=== PATIENT | female | born 1935 | race Hispanic/Latino ===

== ENCOUNTER 2020-05-25 15:29 | Inpatient (IN) | payer MEDICARE ==
[~2020-05-25] VITALS: Ht 152.4 cm; Wt 79.4 kg
[2020-05-25 16:43] LABS: BASOPHILS % (AUTO) 0.3 % (0.0-5.0); EOSINOPHILS % (AUTO) 1.5 % (0.0-8.0); HEMATOCRIT 41.9 % (36-48); LYMPHOCYTES % (AUTO) 5.4 % (21.0-51.0); MEAN CORPUSCULAR VOLUME 84.3 fL (79-99); NEUTROPHILS % (AUTO) 87.2 % (40.0-77.0); PLATELET COUNT (AUTO) 177 K/uL (130-400); RED BLOOD CELL COUNT(AUTO) 4.97 MIL/uL (4.00-5.50); RED CELL DISTRIBUTION WIDTH 14.2 % (11.0-15.5); WHITE BLOOD COUNT (AUTO) 12.4 K/uL (4.8-10.8)
[2020-05-25] MEDS ORDERED: 0.9%NACL 1000ML 1,000 ML IV ONE ×2 (16:52→19:58)
[2020-05-25] MEDS ORDERED: ONDANSETRON 4MG INJ ONE ×2 (16:52→23:10)
[2020-05-25] MEDS ORDERED: MORPHINE 2 MG SYG ONE (16:52)
[2020-05-25 17:03] LABS: INR 1.27 (0.85-1.15); PROTHROMBIN TIME 13.5 SEC (9.6-11.6)
[2020-05-25 17:05] LABS: PARTIAL THROMBOPLASTIN TIME 29.4 SEC (26.3-35.5)
[2020-05-25 17:09] LABS: ALBUMIN 2.8 g/dL (3.5-5.0); BILIRUBIN,TOTAL 0.4 mg/dL (0.2-1.0); CREATININE 1.3 mg/dL (0.5-1.5); POTASSIUM 4.7 mmol/L (3.5-5.1); TOTAL PROTEIN, SERUM 7.9 g/dL (6.0-8.3)
[2020-05-25] MEDS ORDERED: ZOSYN 3.375GM+NS 50ML 50 ML IV ONE (19:56)
[2020-05-25] MEDS ORDERED: INSULIN HUMULIN R 100 UNIT/ML 3ML ONE (19:57)
[2020-05-25] MEDS ORDERED: 0.9%NACL 1000ML 2,000 ML IV ONE (20:34)
[2020-05-25] MEDS ORDERED: ACETAMINOPHEN 650 MG SUPPOSITORY RC PRN (21:00)
[2020-05-25 21:22] LABS: APPEARANCE,URINE Clear (CLEAR); BILIRUBIN,URINE Negative (NEGATIVE); COLOR,URINE Yellow (YELLOW); GLUCOSE, URINE (UA) >=1000 mg/dL (NEGATIVE); KETONES,URINE 15 mg/dL (NEGATIVE); LEUKOCYTE ESTERASE ,URINE Negative (NEGATIVE); NITRATE,URINE Negative (NEGATIVE); OCCULT BLOOD,URINE Negative (NEGATIVE); PH,URINE 5.5 (5.0-8.0); PROTEIN,URINE POS 1+ mg/dL (NEGATIVE); UROBILINOGEN,URINE 0.2 mg/dL (0.2-1.0)
[2020-05-25 21:32] LABS: BACTERIA,URINE Few /HPF (None Seen); RBC,URINE 0-1 /HPF (0-1); SQUAMOUS EPITHELIAL CELL,UR Few /HPF (0-2)
[2020-05-25] MEDS ORDERED: ETOMIDATE 20MG VIAL ONE (23:08)
[2020-05-25] MEDS ORDERED: SUCCINYLCHOLINE CHLORIDE 20 MG/ML 10 ML VIAL ONE (23:10)
[2020-05-25] MEDS ORDERED: ROCURONIUM 10MG/1ML SYR 10 MG/ML ML ONE (23:10)
[2020-05-25] MEDS ORDERED: FENTANYL CITRATE PF 50 MCG/1 ML 2ML VIAL ONE (23:11)
[2020-05-25] MEDS ORDERED: ALBUMIN (HUMAN) 5% 250 ML IV ONE (23:56)
[2020-05-26] VITALS (29 sets, daily range): BP systolic 110–177; BP diastolic 44–84
[2020-05-26 00:21] LABS: ABG BASE EXCESS -9.1 mmol/L (-2.0-3.0); ABG HCO3 16.6 mmol/L (21.0-28.0); ABG OXYGEN SATURATION 99.4 % (95.0-99.0); ABG PCO2 35 mmHg (32-45)
[2020-05-26] MEDS ORDERED: PROPOFOL 1000 MG/100 ML 100 ML IV ONE ×2 (00:26→03:21)
[2020-05-26] MEDS: ZOSYN 3.375GM+NS 50ML 50 ML IV SCH ×3 (01:37→20:52)
[2020-05-26] MEDS: METOPROLOL TARTRATE 1 MG/ML 5ML VIAL IV SCH ×5 (01:37→20:54)
[2020-05-26] MEDS ORDERED: PROPOFOL 1000 MG/100 ML 100 ML IV SCH (01:45)
[2020-05-26 04:58] LABS: BASOPHILS % (AUTO) 0.4 % (0.0-5.0); EOSINOPHILS % (AUTO) 1.1 % (0.0-8.0); HEMATOCRIT 34.1 % (36-48); LYMPHOCYTES % (AUTO) 5.2 % (21.0-51.0); MEAN CORPUSCULAR HEMOGLOBIN 27.3 pg (27.0-33.0); MEAN CORPUSCULAR HGB CONC 32.3 g/dL (32.0-36.0); MEAN CORPUSCULAR VOLUME 84.6 fL (79-99); MONOCYTES % (AUTO) 4.6 % (3.0-13.0); NEUTROPHILS % (AUTO) 88.4 % (40.0-77.0); PLATELET COUNT (AUTO) 147 K/uL (130-400); RED BLOOD CELL COUNT(AUTO) 4.03 MIL/uL (4.00-5.50); RED CELL DISTRIBUTION WIDTH 14.2 % (11.0-15.5); WHITE BLOOD COUNT (AUTO) 10.7 K/uL (4.8-10.8)
[2020-05-26 05:15] LABS: INR 1.37 (0.85-1.15); POTASSIUM 4.2 mmol/L (3.5-5.1); PROTHROMBIN TIME 14.5 SEC (9.6-11.6)
[2020-05-26 05:16] LABS: PARTIAL THROMBOPLASTIN TIME 34.7 SEC (26.3-35.5)
[2020-05-26] MEDS ORDERED: LACTATED RINGERS 1000ML 1,000 ML IV ONE (06:49)
[2020-05-26] MEDS: LACTATED RINGERS 1000ML 1,000 ML IV SCH ×2 (08:18→20:42)
[2020-05-26] MEDS: FAMOTIDINE 20MG VIAL IV SCH ×2 (08:21→20:52)
[2020-05-26] MEDS: MORPHINE 4 MG SYG IVP PRN (10:20)
[2020-05-26] MEDS: INSULIN HUMULIN R 100 UNIT/ML 3ML SQ SCH ×3 (12:15→23:55)
[2020-05-26 12:33] LABS: ABG BASE EXCESS -1.2 mmol/L (-2.0-3.0); ABG OXYGEN SATURATION 99.3 % (95.0-99.0); ABG PCO2 33 mmHg (32-45)
[2020-05-26 13:56] LABS: ABG BASE EXCESS -2.5 mmol/L (-2.0-3.0); ABG OXYGEN SATURATION 99.5 % (95.0-99.0); ABG PCO2 33 mmHg (32-45)
[2020-05-26] MEDS: MORPHINE 2 MG SYG IVP PRN ×2 (14:30→23:56)
[2020-05-26] MEDS ORDERED: SITA1TAB6 PO (17:59)
[2020-05-26] MEDS ORDERED: LOVA40TA2 PO (17:59)
[2020-05-26] MEDS ORDERED: APIX5TAB PO (17:59)
[2020-05-26] MEDS ORDERED: LOSA100T58 PO (17:59)
[2020-05-26] MEDS ORDERED: OMEP40CA21 PO (17:59)
[2020-05-26] MEDS ORDERED: SUCR1ORA15 PO (17:59)
[2020-05-26] MEDS ORDERED: DULO20CA18 PO (17:59)
[2020-05-26] MEDS ORDERED: INSU100I26 SQ (17:59)
[2020-05-26] MEDS ORDERED: METO-409 PO (17:59)
[2020-05-26] MEDS ORDERED: AMLO2.5T4 PO (17:59)
[2020-05-26] MEDS ORDERED: DICY10SY2 PO (17:59)
[2020-05-26] MEDS: ENOXAPARIN SODIUM 40 MG/0.4 ML SYRINGE SQ SCH (20:55)
[2020-05-26] MEDS: INSULIN GLARGINE 100 UNITS/ML 10 ML VIAL SQ SCH (21:00)
[2020-05-27] VITALS (23 sets, daily range): BP systolic 113–164; BP diastolic 44–77
[2020-05-27] MEDS: LACTATED RINGERS 1000ML 1,000 ML IV SCH ×2 (02:51→15:58)
[2020-05-27] MEDS: METOPROLOL TARTRATE 1 MG/ML 5ML VIAL IV SCH ×4 (02:51→20:25)
[2020-05-27] MEDS: MORPHINE 4 MG SYG IVP PRN (04:25)
[2020-05-27] MEDS: INSULIN HUMULIN R 100 UNIT/ML 3ML SQ SCH ×4 (05:49→20:27)
[2020-05-27 08:27] LABS: BASOPHILS % (AUTO) 0.4 % (0.0-5.0); EOSINOPHILS % (AUTO) 1.1 % (0.0-8.0); HEMATOCRIT 30.7 % (36-48); LYMPHOCYTES % (AUTO) 6.7 % (21.0-51.0); MEAN CORPUSCULAR HEMOGLOBIN 26.8 pg (27.0-33.0); MEAN CORPUSCULAR HGB CONC 31.9 g/dL (32.0-36.0); MEAN CORPUSCULAR VOLUME 84.1 fL (79-99); MONOCYTES % (AUTO) 4.2 % (3.0-13.0); NEUTROPHILS % (AUTO) 86.6 % (40.0-77.0); NUCLEATED RED BLOOD CELLS 0.1 % (0.0-0.19); PLATELET COUNT (AUTO) 140 K/uL (130-400); RED BLOOD CELL COUNT(AUTO) 3.65 MIL/uL (4.00-5.50); RED CELL DISTRIBUTION WIDTH 14.6 % (11.0-15.5); WHITE BLOOD COUNT (AUTO) 14.4 K/uL (4.8-10.8)
[2020-05-27] MEDS ORDERED: LIDOCAINE HCL-MPF 1% 2ML VIAL IV PRN (08:30)
[2020-05-27] MEDS: ENOXAPARIN SODIUM 40 MG/0.4 ML SYRINGE SQ SCH (08:38)
[2020-05-27] MEDS: ZOSYN 3.375GM+NS 50ML 50 ML IV SCH ×2 (08:39→20:26)
[2020-05-27] MEDS: FAMOTIDINE 20MG VIAL IV SCH ×2 (08:39→20:26)
[2020-05-27 08:41] LABS: CREATININE 0.9 mg/dL (0.5-1.5); MAGNESIUM 0.6 mg/dL (1.80-2.40); POTASSIUM 3.7 mmol/L (3.5-5.1)
[2020-05-27] MEDS: POTASSIUM CHLORIDE 20MEQ/100ML 100 ML IV PRN (09:19)
[2020-05-27] MEDS: MAGNESIUM 2GM PREMIX 50ML 50 ML IV PRN ×2 (09:19→11:00)
[2020-05-27] MEDS: MORPHINE 2 MG SYG IVP PRN ×2 (10:29→21:37)
[2020-05-27] MEDS: INSULIN GLARGINE 100 UNITS/ML 10 ML VIAL SQ SCH (20:35)
[2020-05-28] VITALS (16 sets, daily range): BP systolic 108–179; BP diastolic 40–93
[2020-05-28] MEDS: MAGNESIUM 2GM PREMIX 50ML 50 ML IV PRN (00:29)
[2020-05-28] MEDS: METOPROLOL TARTRATE 1 MG/ML 5ML VIAL IV SCH ×4 (02:31→21:33)
[2020-05-28 03:49] LABS: BASOPHILS % (AUTO) 0.2 % (0.0-5.0); EOSINOPHILS % (AUTO) 0.1 % (0.0-8.0); HEMATOCRIT 29.8 % (36-48); LYMPHOCYTES % (AUTO) 4.8 % (21.0-51.0); MEAN CORPUSCULAR HEMOGLOBIN 26.7 pg (27.0-33.0); MEAN CORPUSCULAR HGB CONC 30.9 g/dL (32.0-36.0); MEAN CORPUSCULAR VOLUME 86.4 fL (79-99); MONOCYTES % (AUTO) 4.2 % (3.0-13.0); PLATELET COUNT (AUTO) 116 K/uL (130-400); RED BLOOD CELL COUNT(AUTO) 3.45 MIL/uL (4.00-5.50); RED CELL DISTRIBUTION WIDTH 14.6 % (11.0-15.5); WHITE BLOOD COUNT (AUTO) 13.7 K/uL (4.8-10.8)
[2020-05-28 04:00] LABS: CREATININE 0.8 mg/dL (0.5-1.5); MAGNESIUM 2.6 mg/dL (1.80-2.40); POTASSIUM 3.8 mmol/L (3.5-5.1)
[2020-05-28] MEDS: LACTATED RINGERS 1000ML 1,000 ML IV SCH ×3 (04:43→15:35)
[2020-05-28] MEDS: POTASSIUM CHLORIDE 20MEQ/100ML 100 ML IV PRN (06:31)
[2020-05-28] MEDS: INSULIN HUMULIN R 100 UNIT/ML 3ML SQ SCH ×3 (06:36→18:00)
[2020-05-28] MEDS: ZOSYN 3.375GM+NS 50ML 50 ML IV SCH ×2 (09:24→21:34)
[2020-05-28] MEDS: FAMOTIDINE 20MG VIAL IV SCH ×2 (09:24→21:34)
[2020-05-28] MEDS: ENOXAPARIN SODIUM 40 MG/0.4 ML SYRINGE SQ SCH (10:30)
[2020-05-28] MEDS: INSULIN GLARGINE 100 UNITS/ML 10 ML VIAL SQ SCH (21:00)
[2020-05-29] MEDS: MORPHINE 2 MG SYG IVP PRN (00:28)
[2020-05-29 03:37] VITALS: BP 164/95
[2020-05-29] MEDS: METOPROLOL TARTRATE 1 MG/ML 5ML VIAL IV SCH ×4 (04:12→21:52)
[2020-05-29] MEDS: INSULIN HUMULIN R 100 UNIT/ML 3ML SQ SCH ×5 (06:00→22:08)
[2020-05-29] MEDS: LACTATED RINGERS 1000ML 1,000 ML IV SCH ×2 (07:04→16:33)
[2020-05-29 08:34] VITALS: BP 168/65
[2020-05-29] MEDS: FAMOTIDINE 20MG VIAL IV SCH ×2 (09:21→21:51)
[2020-05-29] MEDS: ZOSYN 3.375GM+NS 50ML 50 ML IV SCH ×2 (09:21→21:52)
[2020-05-29] MEDS: ENOXAPARIN SODIUM 40 MG/0.4 ML SYRINGE SQ SCH (09:22)
[2020-05-29 12:00] VITALS: BP 166/79
[2020-05-29] MEDS: APIXABAN 5 MG TABLET PO SCH ×2 (12:20→21:51)
[2020-05-29 16:22] VITALS: BP 153/94
[2020-05-29 19:15] VITALS: BP 155/91
[2020-05-29] MEDS: INSULIN GLARGINE 100 UNITS/ML 10 ML VIAL SQ SCH (22:06)
[2020-05-29 23:25] VITALS: BP 159/75
[2020-05-30] MEDS: LACTATED RINGERS 1000ML 1,000 ML IV SCH ×3 (03:04→20:31)
[2020-05-30] MEDS: METOPROLOL TARTRATE 1 MG/ML 5ML VIAL IV SCH ×4 (03:04→20:35)
[2020-05-30 03:51] VITALS: BP 172/93
[2020-05-30] MEDS: INSULIN HUMULIN R 100 UNIT/ML 3ML SQ SCH ×4 (06:00→20:46)
[2020-05-30 08:46] VITALS: BP 176/80
[2020-05-30] MEDS: ZOSYN 3.375GM+NS 50ML 50 ML IV SCH ×2 (10:25→20:39)
[2020-05-30] MEDS: FAMOTIDINE 20MG VIAL IV SCH ×2 (10:26→20:32)
[2020-05-30] MEDS: APIXABAN 5 MG TABLET PO SCH ×2 (10:26→20:32)
[2020-05-30 12:08] VITALS: BP 152/116
[2020-05-30 16:21] VITALS: BP 142/93
[2020-05-30 20:00] VITALS: BP 152/67
[2020-05-30] MEDS: INSULIN GLARGINE 100 UNITS/ML 10 ML VIAL SQ SCH (20:44)
[2020-05-31] VITALS: BP 162/79
[2020-05-31] MEDS: METOPROLOL TARTRATE 1 MG/ML 5ML VIAL IV SCH ×4 (03:39→21:30)
[2020-05-31 04:00] VITALS: BP 161/92
[2020-05-31] MEDS: INSULIN HUMULIN R 100 UNIT/ML 3ML SQ SCH ×4 (07:30→21:00)
[2020-05-31 08:58] VITALS: BP 132/66
[2020-05-31] MEDS: LACTATED RINGERS 1000ML 1,000 ML IV SCH ×2 (09:00→19:00)
[2020-05-31] MEDS ORDERED: ACETAMINOPHEN 500 MG TABLET PO PRN (10:45)
[2020-05-31] MEDS: ZOSYN 3.375GM+NS 50ML 50 ML IV SCH ×2 (10:49→21:30)
[2020-05-31] MEDS: FAMOTIDINE 20MG VIAL IV SCH ×2 (10:50→21:29)
[2020-05-31] MEDS: LOSARTAN 100 MG TABLET PO SCH (10:50)
[2020-05-31] MEDS: APIXABAN 5 MG TABLET PO SCH ×2 (10:50→21:30)
[2020-05-31 16:37] VITALS: BP 152/97
[2020-05-31 20:07] VITALS: BP 169/99
[2020-05-31] MEDS: INSULIN GLARGINE 100 UNITS/ML 10 ML VIAL SQ SCH (21:34)
[2020-06-01] VITALS (7 sets, daily range): BP systolic 118–163; BP diastolic 50–92
[2020-06-01] MEDS: METOPROLOL TARTRATE 1 MG/ML 5ML VIAL IV SCH ×4 (03:38→16:58)
[2020-06-01] MEDS: LACTATED RINGERS 1000ML 1,000 ML IV SCH ×2 (05:00→15:09)
[2020-06-01] MEDS: INSULIN HUMULIN R 100 UNIT/ML 3ML SQ SCH ×4 (05:22→20:57)
[2020-06-01 05:55] LABS: HEMATOCRIT 29.8 % (36-48); MEAN CORPUSCULAR HEMOGLOBIN 26.5 pg (27.0-33.0); MEAN CORPUSCULAR HGB CONC 31.9 g/dL (32.0-36.0); RED BLOOD CELL COUNT(AUTO) 3.59 MIL/uL (4.00-5.50); RED CELL DISTRIBUTION WIDTH 14.2 % (11.0-15.5); WHITE BLOOD COUNT (AUTO) 7.8 K/uL (4.8-10.8)
[2020-06-01 06:17] LABS: CREATININE 0.6 mg/dL (0.5-1.5); MAGNESIUM 0.7 mg/dL (1.80-2.40)
[2020-06-01 06:22] LABS: POTASSIUM 2.1 mmol/L (3.5-5.1)
[2020-06-01] MEDS ORDERED: POTASSIUM CHLORIDE 20MEQ/100ML 100 ML IV PRN (07:30)
[2020-06-01] MEDS ORDERED: LIDOCAINE HCL-MPF 1% 2ML VIAL IV PRN (07:30)
[2020-06-01] MEDS: LOSARTAN 100 MG TABLET PO SCH (08:42)
[2020-06-01] MEDS: ZOSYN 3.375GM+NS 50ML 50 ML IV SCH ×2 (08:42→20:56)
[2020-06-01] MEDS: FAMOTIDINE 20MG VIAL IV SCH ×2 (08:42→20:55)
[2020-06-01] MEDS: APIXABAN 5 MG TABLET PO SCH ×2 (08:42→20:56)
[2020-06-01] MEDS: KCL 20 MEQ ERTAB PO PRN (15:05)
[2020-06-01] MEDS ORDERED: KETOROLAC 15MG/ML VIAL (15MG/ML) ONE (20:37)
[2020-06-01] MEDS ORDERED: HYDROMORPHONE 0.5 MG SYG (0.5MG/0.5ML) IVP PRN (20:45)
[2020-06-01] MEDS: KETOROLAC 15MG/ML VIAL (15MG/ML) IV PRN (20:54)
[2020-06-01] MEDS: ONDANSETRON 4MG INJ IVP PRN (20:54)
[2020-06-01] MEDS: INSULIN GLARGINE 100 UNITS/ML 10 ML VIAL SQ SCH (21:00)
[2020-06-02] MEDS: LACTATED RINGERS 1000ML 1,000 ML IV SCH ×4 (01:00→22:06)
[2020-06-02] MEDS: METOPROLOL TARTRATE 1 MG/ML 5ML VIAL IV SCH ×4 (03:36→21:00)
[2020-06-02 04:25] VITALS: BP 142/63
[2020-06-02] MEDS: INSULIN HUMULIN R 100 UNIT/ML 3ML SQ SCH ×4 (07:30→23:13)
[2020-06-02 08:00] VITALS: BP 155/77
[2020-06-02] MEDS: ZOSYN 3.375GM+NS 50ML 50 ML IV SCH ×2 (08:24→22:02)
[2020-06-02] MEDS: LOSARTAN 100 MG TABLET PO SCH (08:24)
[2020-06-02] MEDS: APIXABAN 5 MG TABLET PO SCH ×2 (08:24→22:02)
[2020-06-02] MEDS: FAMOTIDINE 20MG VIAL IV SCH ×2 (08:24→22:01)
[2020-06-02 08:43] LABS: HEMATOCRIT 27.6 % (36-48); MEAN CORPUSCULAR HEMOGLOBIN 26.5 pg (27.0-33.0); MEAN CORPUSCULAR HGB CONC 31.2 g/dL (32.0-36.0); MEAN CORPUSCULAR VOLUME 84.9 fL (79-99); PLATELET COUNT (AUTO) 70 K/uL (130-400); RED BLOOD CELL COUNT(AUTO) 3.25 MIL/uL (4.00-5.50); RED CELL DISTRIBUTION WIDTH 14.5 % (11.0-15.5); WHITE BLOOD COUNT (AUTO) 8.3 K/uL (4.8-10.8)
[2020-06-02 09:06] LABS: CREATININE 0.6 mg/dL (0.5-1.5); MAGNESIUM 0.5 mg/dL (1.80-2.40); POTASSIUM 3.2 mmol/L (3.5-5.1)
[2020-06-02 12:00] VITALS: BP 157/87
[2020-06-02] MEDS: MAGNESIUM 2GM PREMIX 50ML 50 ML IV PRN (12:19)
[2020-06-02] MEDS: KCL 20 MEQ ERTAB PO PRN (12:19)
[2020-06-02 16:00] VITALS: BP 158/85
[2020-06-02 19:55] VITALS: BP 141/69
[2020-06-02] MEDS: KETOROLAC 15MG/ML VIAL (15MG/ML) IV PRN (22:06)
[2020-06-02] MEDS: INSULIN GLARGINE 100 UNITS/ML 10 ML VIAL SQ SCH (23:12)
[2020-06-02 23:25] VITALS: BP 143/57
[2020-06-03 03:58] VITALS: BP 141/55
[2020-06-03 03:59] LABS: BASOPHILS % (AUTO) 0.3 % (0.0-5.0); EOSINOPHILS % (AUTO) 1.3 % (0.0-8.0); HEMATOCRIT 27.3 % (36-48); LYMPHOCYTES % (AUTO) 10.6 % (21.0-51.0); MEAN CORPUSCULAR HEMOGLOBIN 26.7 pg (27.0-33.0); MEAN CORPUSCULAR HGB CONC 32.2 g/dL (32.0-36.0); MONOCYTES % (AUTO) 6.3 % (3.0-13.0); NEUTROPHILS % (AUTO) 79.9 % (40.0-77.0); NUCLEATED RED BLOOD CELLS 0.2 % (0.0-0.19); PLATELET COUNT (AUTO) 70 K/uL (130-400); RED BLOOD CELL COUNT(AUTO) 3.29 MIL/uL (4.00-5.50); RED CELL DISTRIBUTION WIDTH 14.4 % (11.0-15.5); WHITE BLOOD COUNT (AUTO) 9.3 K/uL (4.8-10.8)
[2020-06-03 04:14] LABS: CREATININE 0.6 mg/dL (0.5-1.5); MAGNESIUM 0.9 mg/dL (1.80-2.40)
[2020-06-03 04:15] LABS: POTASSIUM 2.6 mmol/L (3.5-5.1)
[2020-06-03] MEDS: POTASSIUM CHLORIDE 20MEQ/100ML 100 ML IV PRN ×3 (04:38→21:08)
[2020-06-03] MEDS: LACTATED RINGERS 1000ML 1,000 ML IV SCH ×2 (04:39→20:59)
[2020-06-03] MEDS: METOPROLOL TARTRATE 1 MG/ML 5ML VIAL IV SCH ×4 (04:40→21:00)
[2020-06-03] MEDS: INSULIN HUMULIN R 100 UNIT/ML 3ML SQ SCH ×4 (06:34→21:12)
[2020-06-03] MEDS: MAGNESIUM 2GM PREMIX 50ML 50 ML IV PRN ×2 (07:40→15:39)
[2020-06-03 08:29] VITALS: BP 157/57
[2020-06-03] MEDS: ONDANSETRON 4MG INJ IVP PRN ×2 (09:06→21:54)
[2020-06-03] MEDS: ZOSYN 3.375GM+NS 50ML 50 ML IV SCH (10:40)
[2020-06-03] MEDS: LOSARTAN 100 MG TABLET PO SCH (10:40)
[2020-06-03] MEDS: FAMOTIDINE 20MG VIAL IV SCH ×2 (10:40→20:59)
[2020-06-03 12:09] VITALS: BP 152/92
[2020-06-03 17:19] VITALS: BP 153/69
[2020-06-03 20:16] VITALS: BP 156/53
[2020-06-03] MEDS: POTASSIUM CHLORIDE 10% ELIXIR 20 MEQ/15 ML UDCUP PO PRN ×2 (20:59→23:46)
[2020-06-03] MEDS: INSULIN GLARGINE 100 UNITS/ML 10 ML VIAL SQ SCH (21:12)
[2020-06-04 00:12] VITALS: BP 117/45
[2020-06-04] MEDS: POTASSIUM CHLORIDE 10% ELIXIR 20 MEQ/15 ML UDCUP PO PRN ×2 (01:46→03:07)
[2020-06-04] MEDS: LACTATED RINGERS 1000ML 1,000 ML IV SCH (03:00)
[2020-06-04] MEDS: METOPROLOL TARTRATE 1 MG/ML 5ML VIAL IV SCH ×2 (03:33→09:10)
[2020-06-04 04:12] VITALS: BP 137/64
[2020-06-04 05:21] LABS: HEMATOCRIT 26.8 % (36-48); MEAN CORPUSCULAR HEMOGLOBIN 26.4 pg (27.0-33.0); MEAN CORPUSCULAR HGB CONC 31.7 g/dL (32.0-36.0); MEAN CORPUSCULAR VOLUME 83.2 fL (79-99); RED BLOOD CELL COUNT(AUTO) 3.22 MIL/uL (4.00-5.50); RED CELL DISTRIBUTION WIDTH 14.5 % (11.0-15.5); WHITE BLOOD COUNT (AUTO) 10.1 K/uL (4.8-10.8)
[2020-06-04 05:41] LABS: ALBUMIN 1.5 g/dL (3.5-5.0); BILIRUBIN,TOTAL 0.3 mg/dL (0.2-1.0); CREATININE 0.6 mg/dL (0.5-1.5); MAGNESIUM 1.3 mg/dL (1.80-2.40); POTASSIUM 4.3 mmol/L (3.5-5.1); TOTAL PROTEIN, SERUM 5.4 g/dL (6.0-8.3)
[2020-06-04] MEDS: INSULIN HUMULIN R 100 UNIT/ML 3ML SQ SCH (06:00)
[2020-06-04] MEDS: LOSARTAN 100 MG TABLET PO SCH (09:10)
[2020-06-04] MEDS: FAMOTIDINE 20MG VIAL IV SCH (09:10)
[2020-06-04 09:50] VITALS: BP 130/54
[2020-06-04] MEDS ORDERED: METOPROLOL TARTRATE 1 MG/ML 5ML VIAL IV PRN (10:15)
[2020-06-04] MEDS ORDERED: METOPROLOL TARTRATE 25 MG TAB PO SCH (12:00)
[2020-06-04] MEDS ORDERED: TRAMADOL HCL 50 MG TABLET PO PRN (12:15)
[2020-06-04 13:31] VITALS: BP 131/60
[2020-06-04] MEDS ORDERED: TRAM50TA2 PO (14:26)
[2020-06-04] MEDS ORDERED: AMOX-426 PO (14:26)
[2020-06-04] MEDS ORDERED: PANTOPRAZOLE 40 MG TAB DR PO SCH (21:00)
[2020-06-04] MEDS ORDERED: APIXABAN 5 MG TABLET PO SCH (21:00)
[2020-06-04] MEDS ORDERED: **HM**DULOXETINE 20MG PO SCH (21:00)
[2020-06-05] MEDS ORDERED: ATORVASTATIN 10 MG TABLET PO SCH (09:00)
[2020-06-05] MEDS ORDERED: AMLODIPINE 5 MG TAB PO SCH (09:00)
[2020-06-13] MEDS ORDERED: POTA-202 PO (03:06)
== END 2020-06-04 17:30 | DRG 329 ==
LOC: EDH 15:29 → EDHIP 19:58 → 2DH 05-26 01:09 → 3BH 05-28 19:40
PROVIDERS: ADMIT Internal Medicine Critical Care Medicine; ATTEND Internal Medicine Critical Care Medicine
PROC: 0DB80ZZ Excision of Small Intestine, Open Approach (ICD-10-PCS; principal; 2020-05-26)
PROC: 02HV33Z Insertion of Infusion Device into Superior Vena Cava, Percutaneous Approach (ICD-10-PCS; 2020-05-26)
DX: K63.1 Perforation of intestine (nontraumatic) (principal); K65.1 Peritoneal abscess; I48.20 Chronic atrial fibrillation, unspecified; E11.9 Type 2 diabetes mellitus without complications; K43.9 Ventral hernia without obstruction or gangrene; Z20.822 Contact with and (suspected) exposure to COVID-19; D64.9 Anemia, unspecified; D69.6 Thrombocytopenia, unspecified; I25.10 Atherosclerotic heart disease of native coronary artery without angina pectoris; E66.9 Obesity, unspecified; E78.5 Hyperlipidemia, unspecified; E87.6 Hypokalemia; I10 Essential (primary) hypertension; Z68.34 Body mass index [BMI] 34.0-34.9, adult; Z79.01 Long term (current) use of anticoagulants; Z79.84 Long term (current) use of oral hypoglycemic drugs; Z79.899 Other long term (current) drug therapy; Z83.3 Family history of diabetes mellitus
CPT/HCPCS: 36415; 71045; 71046; 74018; 74021; 74176; 80048; 80053; 81001; 82010; 82150; 82435; 82550; 82803; 82947; 82948; 83605; 83690; 83735; 84132; 84295; 84484; 85018; 85025; 85027; 85610; 85730; 87040; 87070; 87076; 87077; 87186; 87205; 87426; 88307; 88342; 93005; 94002; 97039; 99291; C1894; G0378; J0330; J1170; J1650; J1815; J1885; J2270; J2405; J2543; J2704; J3010; J3475; J3480; J3490; J7030; J7040; J7120; P9045; U0003

== ENCOUNTER 2020-06-11 15:59 | Inpatient (IN) | payer MEDICARE ==
[~2020-06-11] VITALS: Ht 152.4 cm; Wt 72.6 kg
[~2020-06-11 15:59] MED LIST: AMLO2.5T4 PO; AMOX-426 PO; APIX5TAB PO; DICY10SY2 PO; DULO20CA18 PO; INSU100I26 SQ; LOSA100T58 PO; LOVA40TA2 PO; METO-409 PO; OMEP40CA13 PO; SITA1TAB6 PO; SUCR1ORA15 PO
[2020-06-11 17:03] LABS: BASOPHILS % (AUTO) 0.5 % (0.0-5.0); EOSINOPHILS % (AUTO) 0.5 % (0.0-8.0); HEMATOCRIT 30.4 % (36-48); LYMPHOCYTES % (AUTO) 16.3 % (21.0-51.0); MEAN CORPUSCULAR HEMOGLOBIN 26.5 pg (27.0-33.0); MEAN CORPUSCULAR HGB CONC 31.6 g/dL (32.0-36.0); MONOCYTES % (AUTO) 10.9 % (3.0-13.0); NEUTROPHILS % (AUTO) 71.1 % (40.0-77.0); PLATELET COUNT (AUTO) 15 K/uL (130-400); RED BLOOD CELL COUNT(AUTO) 3.62 MIL/uL (4.00-5.50); RED CELL DISTRIBUTION WIDTH 15.2 % (11.0-15.5); WHITE BLOOD COUNT (AUTO) 9.6 K/uL (4.8-10.8)
[2020-06-11 17:17] LABS: INR 1.1 (0.85-1.15); PROTHROMBIN TIME 11.9 SEC (9.6-11.6)
[2020-06-11 17:18] LABS: PARTIAL THROMBOPLASTIN TIME 23.2 SEC (26.3-35.5)
[2020-06-11 17:21] LABS: CREATININE 0.7 mg/dL (0.5-1.5); POTASSIUM 3.3 mmol/L (3.5-5.1)
[2020-06-11 17:28] LABS: ALBUMIN 1.8 g/dL (3.5-5.0); BILIRUBIN,TOTAL 0.3 mg/dL (0.2-1.0); TOTAL PROTEIN, SERUM 6.2 g/dL (6.0-8.3)
[2020-06-11] MEDS ORDERED: IOHEXOL-350 75 ML VIAL IV ONE (17:53)
[2020-06-11 22:16] LABS: APPEARANCE,URINE Clear (CLEAR); BILIRUBIN,URINE Negative (NEGATIVE); COLOR,URINE Yellow (YELLOW); GLUCOSE, URINE (UA) Negative (NEGATIVE); KETONES,URINE Negative (NEGATIVE); LEUKOCYTE ESTERASE ,URINE Moderate (NEGATIVE); NITRATE,URINE Positive (NEGATIVE); OCCULT BLOOD,URINE Negative (NEGATIVE); PROTEIN,URINE Negative (NEGATIVE); UROBILINOGEN,URINE 0.2 mg/dL (0.2-1.0)
[2020-06-11 22:36] LABS: BACTERIA,URINE Moderate /HPF (None Seen); RBC,URINE None Seen /HPF (0-1)
[2020-06-12] MEDS: SODIUM CHLORIDE 0.9% 1000ML 1,000 ML IV SCH ×2 (00:15→20:15)
[2020-06-12] MEDS: CEFTRIAXONE SODIUM 1 GM IVP SCH ×2 (00:30→12:30)
[2020-06-12] MEDS ORDERED: CEFTRIAXONE SODIUM 2 GM VIAL ONE (00:33)
[2020-06-12] MEDS ORDERED: SODIUM CHLORIDE 0.9% 1000ML 1,000 ML IV ONE (03:01)
[2020-06-12] MEDS ORDERED: POTASSIUM CHLORIDE 10% ELIXIR 20 MEQ/15 ML UDCUP PO PRN (07:45)
[2020-06-12] MEDS ORDERED: POTASSIUM CHLORIDE 20MEQ/100ML 100 ML IV PRN ×2 (07:45)
[2020-06-12] MEDS ORDERED: GLUCAGON 1MG KIT 1 MG ML IM PRN (07:45)
[2020-06-12] MEDS ORDERED: LIDOCAINE HCL-MPF 1% 2ML VIAL IV PRN ×2 (07:45)
[2020-06-12] MEDS ORDERED: ACETAMINOPHEN 325 MG TAB PO PRN (07:45)
[2020-06-12] MEDS ORDERED: DEXTROSE 50%-WATER 50 ML DISP.SYRIN IV PRN (07:45)
[2020-06-12] MEDS: PANTOPRAZOLE SODIUM 40 MG TABLET.DR PO SCH (09:00)
[2020-06-12] MEDS: INSULIN HUMULIN R 100 UNIT/ML 3ML SQ SCH ×3 (11:30→21:00)
[2020-06-12] MEDS ORDERED: CEFTRIAXONE SODIUM 1 GM ONE (15:43)
[2020-06-12] MEDS ORDERED: SODIUM CHLORIDE 0.9% 50 ML IV ONE (15:48)
[2020-06-12 21:21] VITALS: BP 124/61
[2020-06-12] MEDS ORDERED: INSULIN HUMULIN R 100 UNIT/ML 3ML ONE (21:35)
[2020-06-13] VITALS: BP 124/50
[2020-06-13] MEDS: CEFTRIAXONE SODIUM 1 GM IVP SCH ×3 (00:08→23:50)
[2020-06-13] MEDS: POTASSIUM CHLORIDE 20 MEQ ERTAB PO PRN ×3 (00:09→05:12)
[2020-06-13] MEDS: ONDANSETRON HCL 4 MG/2 ML VIAL IVP PRN ×2 (00:10→11:04)
[2020-06-13] MEDS ORDERED: ACET-2123 PO (03:06)
[2020-06-13] MEDS ORDERED: POTA20TA82 PO (03:06)
[2020-06-13] MEDS ORDERED: TRAM50TA4 PO (03:06)
[2020-06-13] MEDS ORDERED: DOCU100T PO (03:06)
[2020-06-13] MEDS ORDERED: ATOR10 PO (03:06)
[2020-06-13] MEDS ORDERED: PREN1TAB80 PO (03:06)
[2020-06-13] MEDS ORDERED: OMEP20CA12 PO (03:06)
[2020-06-13] MEDS ORDERED: METO25TA6 PO (03:06)
[2020-06-13] MEDS ORDERED: NYST100P2 MC (03:06)
[2020-06-13] MEDS ORDERED: TORS10TA18 PO (03:06)
[2020-06-13] MEDS ORDERED: ONDA4TAB4 PO (03:06)
[2020-06-13] MEDS ORDERED: MAGN64TA13 PO (03:06)
[2020-06-13] MEDS ORDERED: FERR-82 PO (03:06)
[2020-06-13] MEDS ORDERED: CALM120O TP (03:06)
[2020-06-13] MEDS ORDERED: ONDANSETRON 4 MG TABLET PO PRN (03:15)
[2020-06-13] MEDS ORDERED: TRAMADOL HCL 50 MG TABLET PO PRN (03:15)
[2020-06-13 04:00] VITALS: BP 131/77
[2020-06-13 05:54] LABS: MEAN CORPUSCULAR HEMOGLOBIN 26.3 pg (27.0-33.0); MEAN CORPUSCULAR HGB CONC 31.4 g/dL (32.0-36.0); MEAN CORPUSCULAR VOLUME 83.8 fL (79-99); RED BLOOD CELL COUNT(AUTO) 3.46 MIL/uL (4.00-5.50); RED CELL DISTRIBUTION WIDTH 15.5 % (11.0-15.5); WHITE BLOOD COUNT (AUTO) 8.3 K/uL (4.8-10.8)
[2020-06-13 06:12] LABS: CREATININE 0.7 mg/dL (0.5-1.5); MAGNESIUM 0.7 mg/dL (1.80-2.40); POTASSIUM 3.3 mmol/L (3.5-5.1)
[2020-06-13] MEDS: MAGNESIUM 2GM PREMIX 50ML 50 ML IV PRN (06:46)
[2020-06-13] MEDS: SODIUM CHLORIDE 0.9% 1000ML 1,000 ML IV SCH (06:55)
[2020-06-13] MEDS: INSULIN HUMULIN R 100 UNIT/ML 3ML SQ SCH ×4 (07:28→21:00)
[2020-06-13 08:00] VITALS: BP 157/49
[2020-06-13] MEDS: CALMOSEPTINE TP SCH ×2 (09:00→21:00)
[2020-06-13] MEDS: NYSTATIN 15 GM POWDER TP SCH ×2 (09:00→21:00)
[2020-06-13] MEDS ORDERED: AMLODIPINE BESYLATE 2.5 MG TAB PO SCH (09:00)
[2020-06-13] MEDS: DULOXETINE 20 MG PO SCH ×2 (09:00→21:00)
[2020-06-13] MEDS ORDERED: NON-FORMULARY MEDICATION 1 EACH (Omeprazole 20 MG) PO SCH (09:00)
[2020-06-13] MEDS: MAGNESIUM CHLORIDE 70 MG TABLET.SA PO SCH (10:36)
[2020-06-13] MEDS: DOCUSATE SODIUM 100 MG CAP PO SCH (10:36)
[2020-06-13] MEDS: METOPROLOL TARTRATE 25 MG TAB PO SCH ×2 (10:36→22:14)
[2020-06-13] MEDS: PRENATAL VITAMIN RX TABLET PO SCH (10:36)
[2020-06-13] MEDS: PANTOPRAZOLE SODIUM 40 MG TABLET.DR PO SCH (10:36)
[2020-06-13] MEDS: FERROUS SULFATE 325 MG TABLET.DR PO SCH (10:36)
[2020-06-13] MEDS: LOSARTAN 100 MG TABLET PO SCH (10:37)
[2020-06-13] MEDS: POTASSIUM CHLORIDE 20 MEQ ERTAB PO SCH (10:37)
[2020-06-13] MEDS: TORSEMIDE 20 MG TAB PO SCH (10:38)
[2020-06-13 12:00] VITALS: BP 137/57
[2020-06-13] MEDS: ACETAMINOPHEN EXTRA STRENGTH 500 MG TABLET PO PRN (12:59)
[2020-06-13] MEDS ORDERED: LACTULOSE 20 GM/30 ML UDCUP PO PRN (14:15)
[2020-06-13] MEDS ORDERED: PHARMACY COMMUNICATION MISC SCH (14:15)
[2020-06-13 16:00] VITALS: BP 139/59
[2020-06-13 20:00] VITALS: BP 135/54
[2020-06-13] MEDS ORDERED: FAMOTIDINE/PF 20 MG/2 ML VIAL IV SCH (21:00)
[2020-06-13] MEDS: ATORVASTATIN CALCIUM 10 MG TABLET PO SCH (22:14)
[2020-06-13] MEDS: SIMETHICONE 80 MG TAB.CHEW PO SCH (22:14)
[2020-06-13] MEDS: INSULIN GLARGINE 100 UNITS/ML 10 ML VIAL SQ SCH (22:43)
[2020-06-14] VITALS: BP 139/48
[2020-06-14 04:00] VITALS: BP 152/68
[2020-06-14 05:19] LABS: BASOPHILS % (AUTO) 0.8 % (0.0-5.0); EOSINOPHILS % (AUTO) 1.7 % (0.0-8.0); HEMATOCRIT 29.4 % (36-48); LYMPHOCYTES % (AUTO) 19.2 % (21.0-51.0); MEAN CORPUSCULAR HEMOGLOBIN 26.5 pg (27.0-33.0); MEAN CORPUSCULAR HGB CONC 31.3 g/dL (32.0-36.0); MEAN CORPUSCULAR VOLUME 84.7 fL (79-99); MONOCYTES % (AUTO) 12.4 % (3.0-13.0); RED BLOOD CELL COUNT(AUTO) 3.47 MIL/uL (4.00-5.50); RED CELL DISTRIBUTION WIDTH 15.6 % (11.0-15.5); WHITE BLOOD COUNT (AUTO) 5.9 K/uL (4.8-10.8)
[2020-06-14 05:20] LABS: PLATELET COUNT (AUTO) 6 K/uL (130-400)
[2020-06-14] MEDS: SODIUM CHLORIDE 0.9% 1000ML 1,000 ML IV SCH ×2 (05:35→20:34)
[2020-06-14 05:41] LABS: ALBUMIN 1.6 g/dL (3.5-5.0); BILIRUBIN,TOTAL 0.2 mg/dL (0.2-1.0); CREATININE 0.7 mg/dL (0.5-1.5); MAGNESIUM 1.7 mg/dL (1.80-2.40); POTASSIUM 3.3 mmol/L (3.5-5.1); TOTAL PROTEIN, SERUM 5.9 g/dL (6.0-8.3)
[2020-06-14] MEDS: INSULIN HUMULIN R 100 UNIT/ML 3ML SQ SCH ×4 (06:18→20:43)
[2020-06-14 07:30] VITALS: BP 113/49
[2020-06-14] MEDS ORDERED: DiphenhydrAMINE HCL 50 MG/ML VIAL IV SCH (08:30)
[2020-06-14] MEDS ORDERED: DEXAMETHASONE 10MG/ML 1ML VIAL 10 MG in SODIUM CHLORIDE 0.9% 50 ML IV SCH (08:30)
[2020-06-14] MEDS: ZOSYN 3.375GM+NS 50ML 50 ML IV SCH ×3 (08:50→23:57)
[2020-06-14] MEDS: MAGNESIUM CHLORIDE 70 MG TABLET.SA PO SCH (08:58)
[2020-06-14] MEDS: PRENATAL VITAMIN RX TABLET PO SCH (08:58)
[2020-06-14] MEDS: FERROUS SULFATE 325 MG TABLET.DR PO SCH (08:59)
[2020-06-14] MEDS: POTASSIUM CHLORIDE 20 MEQ ERTAB PO SCH (08:59)
[2020-06-14] MEDS: AMLODIPINE BESYLATE 5 MG TAB PO SCH (09:00)
[2020-06-14] MEDS: DOCUSATE SODIUM 100 MG CAP PO SCH (09:00)
[2020-06-14] MEDS: LOSARTAN 100 MG TABLET PO SCH (09:00)
[2020-06-14] MEDS: METOPROLOL TARTRATE 25 MG TAB PO SCH ×2 (09:00→20:32)
[2020-06-14] MEDS: SIMETHICONE 80 MG TAB.CHEW PO SCH ×3 (09:00→20:32)
[2020-06-14] MEDS: CALMOSEPTINE TP SCH ×2 (09:00→20:33)
[2020-06-14] MEDS: TORSEMIDE 20 MG TAB PO SCH (09:00)
[2020-06-14] MEDS: NYSTATIN 15 GM POWDER TP SCH ×2 (09:09→20:32)
[2020-06-14] MEDS: DULOXETINE 20 MG PO SCH ×2 (10:49→20:33)
[2020-06-14 11:00] VITALS: BP 123/75
[2020-06-14] MEDS: METOCLOPRAMIDE 10 MG/2 ML VIAL IVP SCH ×2 (15:15→23:57)
[2020-06-14 16:00] VITALS: BP 147/39
[2020-06-14] MEDS: METOCLOPRAMIDE 5 MG TABLET PO SCH (16:04)
[2020-06-14] MEDS: ACETAMINOPHEN EXTRA STRENGTH 500 MG TABLET PO PRN (16:07)
[2020-06-14] MEDS ORDERED: MORPHINE SULFATE 2 MG/ML 1ML SYG IM PRN (18:15)
[2020-06-14 20:17] VITALS: BP 155/74
[2020-06-14] MEDS: **HM**DULOXETINE 20MG PO SCH (20:32)
[2020-06-14] MEDS: ATORVASTATIN CALCIUM 10 MG TABLET PO SCH (20:32)
[2020-06-14] MEDS: INSULIN GLARGINE 100 UNITS/ML 10 ML VIAL SQ SCH (20:43)
[2020-06-15] VITALS (7 sets, daily range): BP systolic 111–164; BP diastolic 41–67
[2020-06-15 05:39] LABS: HEMATOCRIT 28.1 % (36-48); MEAN CORPUSCULAR HEMOGLOBIN 26.4 pg (27.0-33.0); MEAN CORPUSCULAR HGB CONC 31.3 g/dL (32.0-36.0); MEAN CORPUSCULAR VOLUME 84.4 fL (79-99); PLATELET COUNT (AUTO) 30 K/uL (130-400); RED BLOOD CELL COUNT(AUTO) 3.33 MIL/uL (4.00-5.50); RED CELL DISTRIBUTION WIDTH 15.4 % (11.0-15.5); WHITE BLOOD COUNT (AUTO) 4.7 K/uL (4.8-10.8)
[2020-06-15 05:46] LABS: BAND NEUTROPHILS % (MANUAL) 4 % (0-2); LYMPHOCYTES % (MANUAL) 13 % (22-44); MAN.DIFF COMMENT-IMPRESSION MANUAL DIFFERENTIAL; MONOCYTES % (MANUAL) 4 % (2-9); REACTIVE LYMPHOCYTES 3 % (0-0); SEGMENTED NEUTROPHILS % 76 % (40-70)
[2020-06-15 05:47] LABS: CREATININE 0.7 mg/dL (0.5-1.5); MAGNESIUM 1.4 mg/dL (1.80-2.40); POTASSIUM 4.3 mmol/L (3.5-5.1)
[2020-06-15] MEDS: METOCLOPRAMIDE 5 MG TABLET PO SCH ×2 (06:29→07:45)
[2020-06-15] MEDS: METOCLOPRAMIDE 10 MG/2 ML VIAL IVP SCH ×2 (06:29→15:06)
[2020-06-15] MEDS: MAGNESIUM 2GM PREMIX 50ML 50 ML IV PRN (06:30)
[2020-06-15] MEDS: INSULIN HUMULIN R 100 UNIT/ML 3ML SQ SCH ×4 (06:32→21:54)
[2020-06-15] MEDS: DULOXETINE 20 MG PO SCH ×2 (09:00→21:46)
[2020-06-15] MEDS: CALMOSEPTINE TP SCH ×2 (09:00→21:00)
[2020-06-15] MEDS: POTASSIUM CHLORIDE 20 MEQ ERTAB PO SCH (09:42)
[2020-06-15] MEDS: FERROUS SULFATE 325 MG TABLET.DR PO SCH (09:43)
[2020-06-15] MEDS: LOSARTAN 100 MG TABLET PO SCH (09:43)
[2020-06-15] MEDS: MAGNESIUM CHLORIDE 70 MG TABLET.SA PO SCH (09:43)
[2020-06-15] MEDS: AMLODIPINE BESYLATE 5 MG TAB PO SCH (09:43)
[2020-06-15] MEDS: PRENATAL VITAMIN RX TABLET PO SCH (09:43)
[2020-06-15] MEDS: METOPROLOL TARTRATE 25 MG TAB PO SCH ×2 (09:44→21:46)
[2020-06-15] MEDS: SIMETHICONE 80 MG TAB.CHEW PO SCH ×3 (09:44→21:46)
[2020-06-15] MEDS: TORSEMIDE 20 MG TAB PO SCH (09:44)
[2020-06-15] MEDS: PANTOPRAZOLE SODIUM 40 MG TABLET.DR PO SCH (09:44)
[2020-06-15] MEDS: **HM**DULOXETINE 20MG PO SCH ×2 (09:45→21:00)
[2020-06-15] MEDS: DOCUSATE SODIUM 100 MG CAP PO SCH (09:45)
[2020-06-15] MEDS: ZOSYN 3.375GM+NS 50ML 50 ML IV SCH ×2 (09:45→17:23)
[2020-06-15] MEDS: SODIUM CHLORIDE 0.9% 1000ML 1,000 ML IV SCH ×2 (09:46→21:48)
[2020-06-15] MEDS: NYSTATIN 15 GM POWDER TP SCH ×2 (10:50→21:47)
[2020-06-15] MEDS: ATORVASTATIN CALCIUM 10 MG TABLET PO SCH (21:46)
[2020-06-15] MEDS: INSULIN GLARGINE 100 UNITS/ML 10 ML VIAL SQ SCH (21:53)
[2020-06-16] MEDS: METOCLOPRAMIDE 10 MG/2 ML VIAL IVP SCH ×3 (00:50→14:39)
[2020-06-16] MEDS: ZOSYN 3.375GM+NS 50ML 50 ML IV SCH ×3 (00:50→16:28)
[2020-06-16 03:33] VITALS: BP 121/60
[2020-06-16 05:52] LABS: CREATININE 0.8 mg/dL (0.5-1.5); HEMATOCRIT 29.1 % (36-48); MAGNESIUM 1.6 mg/dL (1.80-2.40); MEAN CORPUSCULAR HEMOGLOBIN 26.4 pg (27.0-33.0); MEAN CORPUSCULAR HGB CONC 30.2 g/dL (32.0-36.0); MEAN CORPUSCULAR VOLUME 87.4 fL (79-99); POTASSIUM 3.7 mmol/L (3.5-5.1); RED BLOOD CELL COUNT(AUTO) 3.33 MIL/uL (4.00-5.50); RED CELL DISTRIBUTION WIDTH 15.8 % (11.0-15.5); WHITE BLOOD COUNT (AUTO) 6.7 K/uL (4.8-10.8)
[2020-06-16] MEDS: MAGNESIUM 2GM PREMIX 50ML 50 ML IV PRN (06:12)
[2020-06-16] MEDS: INSULIN HUMULIN R 100 UNIT/ML 3ML SQ SCH ×4 (06:13→20:16)
[2020-06-16 07:00] VITALS: BP 127/61
[2020-06-16] MEDS: **HM**DULOXETINE 20MG PO SCH ×2 (09:00→21:04)
[2020-06-16] MEDS: CALMOSEPTINE TP SCH ×2 (09:00→20:16)
[2020-06-16] MEDS: METOPROLOL TARTRATE 25 MG TAB PO SCH ×2 (09:47→21:04)
[2020-06-16] MEDS: LOSARTAN 100 MG TABLET PO SCH (09:47)
[2020-06-16] MEDS: AMLODIPINE BESYLATE 5 MG TAB PO SCH (09:47)
[2020-06-16] MEDS: DOCUSATE SODIUM 100 MG CAP PO SCH (09:47)
[2020-06-16] MEDS: FERROUS SULFATE 325 MG TABLET.DR PO SCH (09:47)
[2020-06-16] MEDS: POTASSIUM CHLORIDE 20 MEQ ERTAB PO SCH (09:48)
[2020-06-16] MEDS: TORSEMIDE 20 MG TAB PO SCH (09:48)
[2020-06-16] MEDS: PRENATAL VITAMIN RX TABLET PO SCH (09:48)
[2020-06-16] MEDS: SIMETHICONE 80 MG TAB.CHEW PO SCH ×3 (09:48→21:04)
[2020-06-16] MEDS: PANTOPRAZOLE SODIUM 40 MG TABLET.DR PO SCH (09:50)
[2020-06-16] MEDS: MAGNESIUM CHLORIDE 70 MG TABLET.SA PO SCH (09:50)
[2020-06-16] MEDS: DULOXETINE 20 MG PO SCH ×2 (09:55→20:16)
[2020-06-16] MEDS: NYSTATIN 15 GM POWDER TP SCH ×2 (09:55→21:04)
[2020-06-16 11:30] VITALS: BP 137/83
[2020-06-16 16:00] VITALS: BP 115/48
[2020-06-16] MEDS: INSULIN GLARGINE 100 UNITS/ML 10 ML VIAL SQ SCH (20:16)
[2020-06-16 20:51] VITALS: BP 115/40
[2020-06-16] MEDS: ATORVASTATIN CALCIUM 10 MG TABLET PO SCH (21:04)
[2020-06-17] MEDS: ZOSYN 3.375GM+NS 50ML 50 ML IV SCH ×3 (00:11→20:53)
[2020-06-17] MEDS: METOCLOPRAMIDE 10 MG/2 ML VIAL IVP SCH ×4 (00:11→23:31)
[2020-06-17 00:18] VITALS: BP 154/56
[2020-06-17 05:05] LABS: HEMATOCRIT 28.9 % (36-48); MEAN CORPUSCULAR HGB CONC 31.5 g/dL (32.0-36.0); MEAN CORPUSCULAR VOLUME 85.8 fL (79-99); RED BLOOD CELL COUNT(AUTO) 3.37 MIL/uL (4.00-5.50); RED CELL DISTRIBUTION WIDTH 15.9 % (11.0-15.5); WHITE BLOOD COUNT (AUTO) 7.3 K/uL (4.8-10.8)
[2020-06-17 05:09] VITALS: BP 139/38
[2020-06-17 05:10] LABS: CREATININE 0.7 mg/dL (0.5-1.5); POTASSIUM 4.3 mmol/L (3.5-5.1)
[2020-06-17] MEDS: INSULIN HUMULIN R 100 UNIT/ML 3ML SQ SCH ×4 (07:30→19:49)
[2020-06-17 08:10] VITALS: BP_SYST 135; BP_SYST 152; BP_DIAS 65; BP_DIAS 93
[2020-06-17] MEDS: DOCUSATE SODIUM 100 MG CAP PO SCH (08:37)
[2020-06-17] MEDS: FERROUS SULFATE 325 MG TABLET.DR PO SCH (08:37)
[2020-06-17] MEDS: METOPROLOL TARTRATE 25 MG TAB PO SCH ×2 (08:37→20:54)
[2020-06-17] MEDS: LOSARTAN 100 MG TABLET PO SCH (08:37)
[2020-06-17] MEDS: SIMETHICONE 80 MG TAB.CHEW PO SCH ×3 (08:37→20:54)
[2020-06-17] MEDS: PANTOPRAZOLE SODIUM 40 MG TABLET.DR PO SCH (08:37)
[2020-06-17] MEDS: TORSEMIDE 20 MG TAB PO SCH (08:38)
[2020-06-17] MEDS: POTASSIUM CHLORIDE 20 MEQ ERTAB PO SCH (08:38)
[2020-06-17] MEDS: AMLODIPINE BESYLATE 5 MG TAB PO SCH (08:39)
[2020-06-17] MEDS: PRENATAL VITAMIN RX TABLET PO SCH (08:41)
[2020-06-17] MEDS: DULOXETINE 20 MG PO SCH ×2 (09:00→21:08)
[2020-06-17] MEDS: **HM**DULOXETINE 20MG PO SCH ×2 (09:00→21:08)
[2020-06-17] MEDS: CALMOSEPTINE TP SCH ×2 (09:00→21:00)
[2020-06-17] MEDS: NYSTATIN 15 GM POWDER TP SCH ×2 (09:05→21:08)
[2020-06-17 11:54] VITALS: BP 137/64
[2020-06-17] MEDS: MAGNESIUM CHLORIDE 70 MG TABLET.SA PO SCH (15:59)
[2020-06-17 17:22] VITALS: BP 146/59
[2020-06-17 20:13] VITALS: BP 120/64
[2020-06-17] MEDS: ATORVASTATIN CALCIUM 10 MG TABLET PO SCH (20:54)
[2020-06-17] MEDS: INSULIN GLARGINE 100 UNITS/ML 10 ML VIAL SQ SCH (21:09)
[2020-06-18] VITALS (14 sets, daily range): BP systolic 115–169; BP diastolic 46–84
[2020-06-18] MEDS: INSULIN HUMULIN R 100 UNIT/ML 3ML SQ SCH ×4 (05:19→20:54)
[2020-06-18] MEDS: METOCLOPRAMIDE 10 MG/2 ML VIAL IVP SCH ×3 (05:25→23:19)
[2020-06-18] MEDS: ZOSYN 3.375GM+NS 50ML 50 ML IV SCH ×3 (05:25→20:52)
[2020-06-18 05:43] LABS: MEAN CORPUSCULAR HEMOGLOBIN 26.7 pg (27.0-33.0); MEAN CORPUSCULAR HGB CONC 31.3 g/dL (32.0-36.0); MEAN CORPUSCULAR VOLUME 85.2 fL (79-99); RED BLOOD CELL COUNT(AUTO) 3.52 MIL/uL (4.00-5.50); WHITE BLOOD COUNT (AUTO) 8.5 K/uL (4.8-10.8)
[2020-06-18 05:45] LABS: PLATELET COUNT (AUTO) 9 K/uL (130-400)
[2020-06-18 06:26] LABS: ALBUMIN 1.8 g/dL (3.5-5.0); BILIRUBIN,TOTAL 0.2 mg/dL (0.2-1.0); CREATININE 0.8 mg/dL (0.5-1.5); MAGNESIUM 1.1 mg/dL (1.80-2.40); POTASSIUM 3.9 mmol/L (3.5-5.1); TOTAL PROTEIN, SERUM 5.7 g/dL (6.0-8.3)
[2020-06-18] MEDS: MAGNESIUM 2GM PREMIX 50ML 50 ML IV PRN (06:37)
[2020-06-18] MEDS ORDERED: DiphenhydrAMINE HCL 50 MG/ML VIAL IV SCH (08:00)
[2020-06-18] MEDS ORDERED: DEXAMETHASONE SOD PHOSPHATE 10MG/ML 1ML VIAL IV SCH (08:00)
[2020-06-18] MEDS: CALMOSEPTINE TP SCH ×2 (09:00→20:53)
[2020-06-18] MEDS: **HM**DULOXETINE 20MG PO SCH ×2 (09:00→20:53)
[2020-06-18] MEDS: DULOXETINE 20 MG PO SCH ×2 (09:00→20:53)
[2020-06-18] MEDS: AMLODIPINE BESYLATE 5 MG TAB PO SCH (09:00)
[2020-06-18] MEDS: PRENATAL VITAMIN RX TABLET PO SCH (09:00)
[2020-06-18] MEDS: MAGNESIUM CHLORIDE 70 MG TABLET.SA PO SCH (09:00)
[2020-06-18] MEDS: SIMETHICONE 80 MG TAB.CHEW PO SCH ×3 (09:00→20:52)
[2020-06-18] MEDS: PANTOPRAZOLE SODIUM 40 MG TABLET.DR PO SCH (09:00)
[2020-06-18] MEDS: DOCUSATE SODIUM 100 MG CAP PO SCH (09:00)
[2020-06-18] MEDS: TORSEMIDE 20 MG TAB PO SCH (09:00)
[2020-06-18] MEDS: POTASSIUM CHLORIDE 20 MEQ ERTAB PO SCH (09:00)
[2020-06-18] MEDS: FERROUS SULFATE 325 MG TABLET.DR PO SCH (09:00)
[2020-06-18] MEDS: LOSARTAN 100 MG TABLET PO SCH (09:00)
[2020-06-18] MEDS: METOPROLOL TARTRATE 25 MG TAB PO SCH ×2 (09:00→20:52)
[2020-06-18 10:23] LABS: INR 1.01 (0.85-1.15)
[2020-06-18] MEDS: NYSTATIN 15 GM POWDER TP SCH ×2 (14:31→20:53)
[2020-06-18] MEDS ORDERED: MIDAZOLAM HCL 1 MG/ML 2ML VIAL ONE (14:47)
[2020-06-18] MEDS ORDERED: FENTANYL CITRATE PF 50 MCG/1 ML 2ML VIAL ONE (14:47)
[2020-06-18] MEDS ORDERED: DEXAMETHASONE 10MG/ML 1ML VIAL 0 MG in SODIUM CHLORIDE 0.9% 50 ML IV SCH (18:30)
[2020-06-18] MEDS: ATORVASTATIN CALCIUM 10 MG TABLET PO SCH (20:52)
[2020-06-18] MEDS: INSULIN GLARGINE 100 UNITS/ML 10 ML VIAL SQ SCH (20:54)
[2020-06-19 00:01] VITALS: BP 136/49
[2020-06-19 03:46] VITALS: BP 147/58
[2020-06-19] MEDS: ZOSYN 3.375GM+NS 50ML 50 ML IV SCH (04:29)
[2020-06-19] MEDS: INSULIN HUMULIN R 100 UNIT/ML 3ML SQ SCH ×3 (05:19→12:16)
[2020-06-19] MEDS: METOCLOPRAMIDE 10 MG/2 ML VIAL IVP SCH (05:46)
[2020-06-19 06:27] LABS: BASOPHILS % (AUTO) 0.3 % (0.0-5.0); HEMATOCRIT 27.9 % (36-48); LYMPHOCYTES % (AUTO) 15.3 % (21.0-51.0); MEAN CORPUSCULAR HEMOGLOBIN 26.7 pg (27.0-33.0); MEAN CORPUSCULAR HGB CONC 31.2 g/dL (32.0-36.0); MEAN CORPUSCULAR VOLUME 85.6 fL (79-99); MONOCYTES % (AUTO) 6.6 % (3.0-13.0); NEUTROPHILS % (AUTO) 73.8 % (40.0-77.0); PLATELET COUNT (AUTO) 21 K/uL (130-400); RED BLOOD CELL COUNT(AUTO) 3.26 MIL/uL (4.00-5.50); RED CELL DISTRIBUTION WIDTH 15.9 % (11.0-15.5); WHITE BLOOD COUNT (AUTO) 7.6 K/uL (4.8-10.8)
[2020-06-19 06:35] LABS: CREATININE 0.7 mg/dL (0.5-1.5); POTASSIUM 3.9 mmol/L (3.5-5.1)
[2020-06-19 07:46] VITALS: BP 151/72
[2020-06-19] MEDS: CALMOSEPTINE TP SCH (09:00)
[2020-06-19] MEDS: NYSTATIN 15 GM POWDER TP SCH (09:00)
[2020-06-19] MEDS: **HM**DULOXETINE 20MG PO SCH (09:00)
[2020-06-19] MEDS: DULOXETINE 20 MG PO SCH (09:00)
[2020-06-19] MEDS: MAGNESIUM CHLORIDE 70 MG TABLET.SA PO SCH (09:52)
[2020-06-19] MEDS: LOSARTAN 100 MG TABLET PO SCH (09:53)
[2020-06-19] MEDS: AMLODIPINE BESYLATE 5 MG TAB PO SCH (09:53)
[2020-06-19] MEDS: PRENATAL VITAMIN RX TABLET PO SCH (09:53)
[2020-06-19] MEDS: TORSEMIDE 20 MG TAB PO SCH (09:53)
[2020-06-19] MEDS: POTASSIUM CHLORIDE 20 MEQ ERTAB PO SCH (09:53)
[2020-06-19] MEDS: METOPROLOL TARTRATE 25 MG TAB PO SCH (09:53)
[2020-06-19] MEDS: FERROUS SULFATE 325 MG TABLET.DR PO SCH (09:53)
[2020-06-19] MEDS: SIMETHICONE 80 MG TAB.CHEW PO SCH (09:53)
[2020-06-19] MEDS: PANTOPRAZOLE SODIUM 40 MG TABLET.DR PO SCH (09:53)
[2020-06-19] MEDS: DOCUSATE SODIUM 100 MG CAP PO SCH (09:54)
[2020-06-19 11:19] VITALS: BP 159/87
[2020-06-19 15:44] VITALS: BP 131/61
== END 2020-06-19 18:15 | disposition home health service (06) | DRG 690 ==
LOC: EDH 15:59 → EDHIP 23:10 → OBSVTOIN 23:10 → 3CH 06-12 21:27
PROVIDERS: ADMIT Internal Medicine; ATTEND Internal Medicine
PROC: 30233R1 Transfusion of Nonautologous Platelets into Peripheral Vein, Percutaneous Approach (ICD-10-PCS; principal; 2020-06-14)
PROC: 07DR3ZX Extraction of Iliac Bone Marrow, Percutaneous Approach, Diagnostic (ICD-10-PCS; 2020-06-14)
DX: N39.0 Urinary tract infection, site not specified (principal); K52.9 Noninfective gastroenteritis and colitis, unspecified; D69.6 Thrombocytopenia, unspecified; I25.10 Atherosclerotic heart disease of native coronary artery without angina pectoris; I10 Essential (primary) hypertension; E66.9 Obesity, unspecified; B96.5 Pseudomonas (aeruginosa) (mallei) (pseudomallei) as the cause of diseases classified elsewhere; R33.9 Retention of urine, unspecified; D64.9 Anemia, unspecified; E11.9 Type 2 diabetes mellitus without complications; D72.0 Genetic anomalies of leukocytes; R62.7 Adult failure to thrive; R54 Age-related physical debility; Z20.822 Contact with and (suspected) exposure to COVID-19; I48.91 Unspecified atrial fibrillation; D69.59 Other secondary thrombocytopenia; Z68.31 Body mass index [BMI] 31.0-31.9, adult; Z79.899 Other long term (current) drug therapy; Z79.84 Long term (current) use of oral hypoglycemic drugs; Z79.01 Long term (current) use of anticoagulants
CPT/HCPCS: 36415; 36430; 38222; 70450; 71045; 74177; 76705; 77012; 80048; 80053; 81001; 82550; 82948; 83605; 83690; 83735; 83883; 84132; 84484; 85025; 85027; 85610; 85730; 86334; 86850; 86900; 86901; 87040; 87077; 87088; 87186; 87426; 93005; 97039; 99152; 99153; G0378; J0696; J1100; J1200; J1815; J2250; J2405; J2543; J2765; J3010; J3475; J3480; J3490; J7030; P9034; Q9967; U0003

== ENCOUNTER 2020-07-13 12:45 | Inpatient (IN) | payer MEDICARE ==
[~2020-07-13] VITALS: Ht 160 cm; Wt 75.3 kg
[~2020-07-13 12:45] MED LIST changes: +ACET-2123 PO; -AMOX-426 PO; -APIX5TAB PO; +ATOR10 PO; +CALM120O TP; -DICY10SY2 PO; +DOCU100T PO; +FERR-82 PO; -LOVA40TA2 PO; +MAGN64TA13 PO; -METO-409 PO; +METO25TA6 PO; +NYST100P2 MC; +OMEP20CA12 PO; -OMEP40CA13 PO; +ONDA4TAB4 PO; +POTA-202 PO; +PREN1TAB80 PO; -SITA1TAB6 PO; -SUCR1ORA15 PO; +TORS10TA18 PO; +TRAM50TA4 PO
[2020-07-13 13:05] LABS: BASOPHILS % (AUTO) 0.1 % (0.0-5.0); EOSINOPHILS % (AUTO) 0.2 % (0.0-8.0); HEMATOCRIT 33.3 % (36-48); MEAN CORPUSCULAR HEMOGLOBIN 28.2 pg (27.0-33.0); MEAN CORPUSCULAR VOLUME 85.4 fL (79-99); MONOCYTES % (AUTO) 6.4 % (3.0-13.0); NEUTROPHILS % (AUTO) 76.4 % (40.0-77.0); PLATELET COUNT (AUTO) 36 K/uL (130-400); RED CELL DISTRIBUTION WIDTH 16.6 % (11.0-15.5); WHITE BLOOD COUNT (AUTO) 22.1 K/uL (4.8-10.8)
[2020-07-13 13:13] LABS: CARBON DIOXIDE 28 mmol/L (21-32); CHLORIDE 97 mmol/L (101-111); GLOMERULAR FILTR. RATE CALC 56 mL/min (>60); GLUCOSE,RANDOM 181 mg/dL (70-105); POTASSIUM 3.1 mmol/L (3.5-5.1); SODIUM SERUM 136 mmol/L (136-145); UREA NITROGEN, BLOOD 23 mg/dL (7-18)
[2020-07-13 13:19] LABS: ALANINE AMINOTRANSFERASE 13 U/L (12-78); ALBUMIN 2.7 g/dL (3.5-5.0); ASPARTATE AMINOTRANSFERASE 13 U/L (10-37); BILIRUBIN,TOTAL 0.6 mg/dL (0.2-1.0); LIPASE 141 U/L (114-286); TOTAL PROTEIN, SERUM 6.3 g/dL (6.0-8.3)
[2020-07-13 13:26] LABS: B-TYPE NATRIURETIC PEPTIDE 285 pg/mL (0-100)
[2020-07-13 13:27] LABS: INR 1.1 (0.85-1.15); PROTHROMBIN TIME 11.9 SEC (9.6-11.6)
[2020-07-13 13:28] LABS: PARTIAL THROMBOPLASTIN TIME 21.5 SEC (26.3-35.5)
[2020-07-13 13:31] LABS: CREATINE KINASE, TOTAL 8 U/L (21-232); CRP QUANTITATIVE < 2.00 mg/L (0.00-9.0)
[2020-07-13] MEDS ORDERED: POTASSIUM BICARB/CIT AC 25 MEQ TABLET.EFF ONE (13:37)
[2020-07-13 13:47] LABS: APPEARANCE,URINE Turbid (CLEAR); BILIRUBIN,URINE Small (NEGATIVE); COLOR,URINE Dark Yellow (YELLOW); GLUCOSE, URINE (UA) Negative (NEGATIVE); KETONES,URINE Trace mg/dL (NEGATIVE); LEUKOCYTE ESTERASE ,URINE Moderate (NEGATIVE); NITRATE,URINE Negative (NEGATIVE); OCCULT BLOOD,URINE Negative (NEGATIVE); PH,URINE 5.5 (5.0-8.0); PROTEIN,URINE POS 2+ mg/dL (NEGATIVE)
[2020-07-13] MEDS ORDERED: CEFTRIAXONE 1G VIAL ONE (13:48)
[2020-07-13] MEDS ORDERED: 0.9%NACL 50ML 50 ML IV ONE (13:49)
[2020-07-13 14:05] LABS: BACTERIA,URINE Many /HPF (None Seen); RBC,URINE 0-1 /HPF (0-1)
[2020-07-13 14:06] LABS: SQUAMOUS EPITHELIAL CELL,UR 0-2 /HPF (0-2); WBC,URINE 26-50 /HPF (0-1)
[2020-07-13 14:07] LABS: COARSE GRANULAR CASTS,URINE 0-2 /LPF (None Seen)
[2020-07-13] MEDS ORDERED: NITROGLYCERIN 1GM OINT 1 INCH/1GM TD ONE (14:45)
[2020-07-13] MEDS ORDERED: ENOXAPARIN SODIUM 40 MG/0.4 ML SYRINGE SQ SCH (16:00)
[2020-07-13] MEDS ORDERED: GLUCAGON 1MG KIT 1 MG ML IM PRN (16:00)
[2020-07-13] MEDS ORDERED: ONDANSETRON 4MG INJ IVP PRN (16:00)
[2020-07-13] MEDS ORDERED: LIDOCAINE HCL-MPF 1% 2ML VIAL IV PRN ×2 (16:00)
[2020-07-13] MEDS ORDERED: LABETALOL 20MG VIAL IV PRN (16:00)
[2020-07-13] MEDS ORDERED: POTASSIUM CHLORIDE 20MEQ/100ML 100 ML IV PRN ×2 (16:00)
[2020-07-13] MEDS ORDERED: KCL 20 MEQ ERTAB PO PRN (16:00)
[2020-07-13] MEDS ORDERED: DEXTROSE 50%-WATER 50 ML DISP.SYRIN IV PRN (16:00)
[2020-07-13] MEDS ORDERED: ENOXAPARIN SODIUM 40 MG/0.4 ML SYRINGE SQ ONE (16:18)
[2020-07-13] MEDS ORDERED: 0.9%NACL 1000ML 1,000 ML IV ONE (16:19)
[2020-07-13] MEDS ORDERED: PANTOPRAZOLE 40 MG/VIAL ONE (16:19)
[2020-07-13] MEDS ORDERED: METOCLOPRAMIDE 10 MG/2 ML VIAL ONE (17:06)
[2020-07-13] MEDS ORDERED: LABETALOL 20MG SYG IV ONE (18:13)
[2020-07-13] MEDS: MENTHOL TP SCH (21:00)
[2020-07-13] MEDS: PANTOPRAZOLE 40 MG/VIAL IVP SCH (21:00)
[2020-07-13] MEDS: CALAMINE TP SCH (21:00)
[2020-07-13] MEDS: LANOLIN TP SCH (21:00)
[2020-07-13] MEDS: METOPROLOL TARTRATE 25 MG TAB PO SCH (21:00)
[2020-07-13] MEDS: ZINC OXIDE TP SCH (21:00)
[2020-07-13] MEDS: NYSTATIN 15 GM POWDER TP SCH (21:00)
[2020-07-13] MEDS ORDERED: METOPROLOL TARTRATE 25 MG TAB ONE (21:30)
[2020-07-13 22:01] VITALS: BP 151/50
[2020-07-13] MEDS: 0.9%NACL 1000ML 1,000 ML IV SCH (22:30)
[2020-07-13] MEDS: MAGNESIUM 2GM PREMIX 50ML 50 ML IV PRN (22:37)
[2020-07-13] MEDS ORDERED: FERR325T22 PO (23:04)
[2020-07-13] MEDS ORDERED: LOVA40TA2 PO (23:04)
[2020-07-14] VITALS (7 sets, daily range): BP systolic 124–147; BP diastolic 41–82
[2020-07-14] MEDS ORDERED: LOPERAMIDE HCL 2 MG CAP PO ONE (01:15)
[2020-07-14 04:38] LABS: HEMATOCRIT 29.6 % (36-48); MEAN CORPUSCULAR HEMOGLOBIN 27.7 pg (27.0-33.0); MEAN CORPUSCULAR HGB CONC 31.8 g/dL (32.0-36.0); MEAN CORPUSCULAR VOLUME 87.3 fL (79-99); RED BLOOD CELL COUNT(AUTO) 3.39 MIL/uL (4.00-5.50); RED CELL DISTRIBUTION WIDTH 16.9 % (11.0-15.5); WHITE BLOOD COUNT (AUTO) 13.8 K/uL (4.8-10.8)
[2020-07-14 05:09] LABS: CREATININE 0.7 mg/dL (0.5-1.5); MAGNESIUM 1.7 mg/dL (1.80-2.40)
[2020-07-14] MEDS: METOCLOPRAMIDE 10 MG/2 ML VIAL IVP SCH ×3 (06:01→16:25)
[2020-07-14] MEDS: 0.9%NACL 1000ML 1,000 ML IV SCH ×3 (08:38→21:54)
[2020-07-14] MEDS: NYSTATIN 15 GM POWDER TP SCH ×2 (08:38→20:24)
[2020-07-14] MEDS: METOPROLOL TARTRATE 25 MG TAB PO SCH ×2 (08:38→20:24)
[2020-07-14] MEDS: PANTOPRAZOLE 40 MG/VIAL IVP SCH ×2 (08:38→20:22)
[2020-07-14] MEDS: CALAMINE TP SCH ×2 (09:00→20:24)
[2020-07-14] MEDS: MENTHOL TP SCH ×2 (09:00→20:24)
[2020-07-14] MEDS ORDERED: CEFTRIAXONE 1G VIAL IV SCH (09:00)
[2020-07-14] MEDS: ZINC OXIDE TP SCH ×2 (09:00→20:24)
[2020-07-14] MEDS: LANOLIN TP SCH ×2 (09:00→20:24)
[2020-07-14] MEDS ORDERED: METO-409 PO (16:50)
[2020-07-14] MEDS ORDERED: PRED10TA3 PO (16:50)
[2020-07-14] MEDS ORDERED: SITA1TAB6 PO (16:50)
[2020-07-14] MEDS: MEROPENEM 1 GM VIAL IVP SCH (17:01)
[2020-07-15] MEDS: MEROPENEM 1 GM VIAL IVP SCH ×3 (00:46→16:34)
[2020-07-15 03:53] VITALS: BP 112/43
[2020-07-15 05:19] LABS: HEMATOCRIT 27.7 % (36-48); MEAN CORPUSCULAR HGB CONC 32.1 g/dL (32.0-36.0); MEAN CORPUSCULAR VOLUME 87.1 fL (79-99); RED BLOOD CELL COUNT(AUTO) 3.18 MIL/uL (4.00-5.50); RED CELL DISTRIBUTION WIDTH 16.9 % (11.0-15.5); WHITE BLOOD COUNT (AUTO) 10.6 K/uL (4.8-10.8)
[2020-07-15 05:47] LABS: POTASSIUM 3.5 mmol/L (3.5-5.1)
[2020-07-15 06:17] LABS: CREATININE 0.6 mg/dL (0.5-1.5)
[2020-07-15] MEDS: METOCLOPRAMIDE 10 MG/2 ML VIAL IVP SCH ×3 (06:23→16:35)
[2020-07-15 07:10] VITALS: BP 138/53
[2020-07-15 08:56] LABS: MAGNESIUM 1.2 mg/dL (1.80-2.40)
[2020-07-15] MEDS ORDERED: DULOXETINE HCL 20 MG PO SCH (09:00)
[2020-07-15] MEDS ORDERED: NON-FORMULARY MEDICATION 1 EACH (Lovastatin 40 MG) PO SCH (09:00)
[2020-07-15] MEDS: ZINC OXIDE TP SCH ×2 (09:00→21:59)
[2020-07-15] MEDS ORDERED: FERROUS SULFATE PO SCH (09:00)
[2020-07-15] MEDS: LANOLIN TP SCH ×2 (09:00→21:59)
[2020-07-15] MEDS ORDERED: NON-FORMULARY MEDICATION 1 EACH (Metoprolol Succinate 150 MG) PO SCH (09:00)
[2020-07-15] MEDS: CALAMINE TP SCH ×2 (09:00→21:59)
[2020-07-15] MEDS: MENTHOL TP SCH ×2 (09:00→21:59)
[2020-07-15] MEDS: Duloxetine HCl 20 MG PO SCH (09:00)
[2020-07-15] MEDS: MAGNESIUM 2GM PREMIX 50ML 50 ML IV PRN ×2 (09:01→12:33)
[2020-07-15] MEDS: 0.9%NACL 1000ML 1,000 ML IV SCH ×2 (09:02→17:38)
[2020-07-15] MEDS: FERROUS SULFATE 325 MG TABLET.DR PO SCH ×3 (09:02→21:59)
[2020-07-15] MEDS: METOPROLOL SUCCINATE 50 MG TAB.SR.24H PO SCH (09:02)
[2020-07-15] MEDS: PANTOPRAZOLE 40 MG/VIAL IVP SCH ×2 (09:02→21:59)
[2020-07-15] MEDS: AMLODIPINE 2.5 MG TAB PO SCH (09:02)
[2020-07-15] MEDS: NYSTATIN 15 GM POWDER TP SCH ×2 (09:10→22:00)
[2020-07-15 11:51] VITALS: BP 144/68
[2020-07-15] MEDS: PREDNISONE 20 MG TABLET PO SCH (12:32)
[2020-07-15] MEDS: INSULIN HUMULIN R 100 UNIT/ML 3ML SQ SCH ×2 (16:45→22:02)
[2020-07-15 16:57] VITALS: BP 127/87
[2020-07-15 19:10] VITALS: BP 136/79
[2020-07-15] MEDS: SIMVASTATIN 10 MG TABLET PO SCH (21:59)
[2020-07-15 23:20] VITALS: BP 104/44
[2020-07-16] MEDS: MEROPENEM 1 GM VIAL IVP SCH ×2 (00:39→07:47)
[2020-07-16] MEDS: 0.9%NACL 1000ML 1,000 ML IV SCH ×3 (03:40→23:49)
[2020-07-16 03:46] VITALS: BP 113/63
[2020-07-16 05:25] LABS: HEMATOCRIT 28.6 % (36-48); MEAN CORPUSCULAR HGB CONC 31.5 g/dL (32.0-36.0); MEAN CORPUSCULAR VOLUME 88.8 fL (79-99); PLATELET COUNT (AUTO) 11 K/uL (130-400); RED BLOOD CELL COUNT(AUTO) 3.22 MIL/uL (4.00-5.50); RED CELL DISTRIBUTION WIDTH 16.7 % (11.0-15.5); WHITE BLOOD COUNT (AUTO) 9.8 K/uL (4.8-10.8)
[2020-07-16 05:36] LABS: CREATININE 0.6 mg/dL (0.5-1.5); MAGNESIUM 1.8 mg/dL (1.80-2.40); POTASSIUM 3.3 mmol/L (3.5-5.1)
[2020-07-16] MEDS: INSULIN HUMULIN R 100 UNIT/ML 3ML SQ SCH ×4 (06:19→21:00)
[2020-07-16] MEDS: METOCLOPRAMIDE 10 MG/2 ML VIAL IVP SCH ×3 (06:19→16:57)
[2020-07-16] MEDS: MAGNESIUM 2GM PREMIX 50ML 50 ML IV PRN (06:22)
[2020-07-16] MEDS: PANTOPRAZOLE 40 MG/VIAL IVP SCH ×2 (07:49→21:00)
[2020-07-16] MEDS: PREDNISONE 20 MG TABLET PO SCH (07:49)
[2020-07-16] MEDS: AMLODIPINE 2.5 MG TAB PO SCH (07:49)
[2020-07-16] MEDS: METOPROLOL SUCCINATE 50 MG TAB.SR.24H PO SCH (07:49)
[2020-07-16] MEDS: FERROUS SULFATE 325 MG TABLET.DR PO SCH ×3 (07:49→21:00)
[2020-07-16 07:56] VITALS: BP 108/38
[2020-07-16] MEDS: NYSTATIN 15 GM POWDER TP SCH ×2 (07:57→21:00)
[2020-07-16] MEDS: Duloxetine HCl 20 MG PO SCH (09:00)
[2020-07-16] MEDS: ZINC OXIDE TP SCH ×2 (09:00→21:00)
[2020-07-16] MEDS: MENTHOL TP SCH ×2 (09:00→21:00)
[2020-07-16] MEDS: CALAMINE TP SCH ×2 (09:00→21:00)
[2020-07-16] MEDS: LANOLIN TP SCH ×2 (09:00→21:00)
[2020-07-16 12:00] VITALS: BP 130/46
[2020-07-16 15:55] VITALS: BP 148/48
[2020-07-16 19:57] VITALS: BP 145/53
[2020-07-16] MEDS: SIMVASTATIN 10 MG TABLET PO SCH (21:00)
[2020-07-16 23:46] VITALS: BP 135/81
[2020-07-17 03:53] VITALS: BP 145/59
[2020-07-17 05:16] LABS: HEMATOCRIT 30.2 % (36-48); MEAN CORPUSCULAR HEMOGLOBIN 27.8 pg (27.0-33.0); MEAN CORPUSCULAR HGB CONC 31.1 g/dL (32.0-36.0); MEAN CORPUSCULAR VOLUME 89.3 fL (79-99); RED BLOOD CELL COUNT(AUTO) 3.38 MIL/uL (4.00-5.50); RED CELL DISTRIBUTION WIDTH 17.1 % (11.0-15.5); WHITE BLOOD COUNT (AUTO) 9.7 K/uL (4.8-10.8)
[2020-07-17 05:30] LABS: CREATININE 0.5 mg/dL (0.5-1.5); POTASSIUM 3.1 mmol/L (3.5-5.1)
[2020-07-17] MEDS: INSULIN HUMULIN R 100 UNIT/ML 3ML SQ SCH ×3 (06:55→17:02)
[2020-07-17] MEDS: METOCLOPRAMIDE 10 MG/2 ML VIAL IVP SCH ×3 (06:55→16:57)
[2020-07-17 08:11] VITALS: BP 133/41
[2020-07-17] MEDS: ZINC OXIDE TP SCH (09:00)
[2020-07-17] MEDS: CALAMINE TP SCH (09:00)
[2020-07-17] MEDS: Duloxetine HCl 20 MG PO SCH (09:00)
[2020-07-17] MEDS: MENTHOL TP SCH (09:00)
[2020-07-17] MEDS ORDERED: LEVOFLOXACIN 500 MG TABLET PO SCH (09:00)
[2020-07-17] MEDS: LANOLIN TP SCH (09:00)
[2020-07-17] MEDS ORDERED: POTASSIUM CHLORIDE 10% ELIXIR 20 MEQ/15 ML UDCUP PO PRN (10:15)
[2020-07-17] MEDS ORDERED: KCL 20 MEQ ERTAB PO PRN (10:15)
[2020-07-17] MEDS ORDERED: POTASSIUM CHLORIDE 20MEQ/100ML 100 ML IV PRN (10:15)
[2020-07-17] MEDS: PANTOPRAZOLE 40 MG/VIAL IVP SCH (11:13)
[2020-07-17] MEDS: PREDNISONE 20 MG TABLET PO SCH (11:14)
[2020-07-17] MEDS: FERROUS SULFATE 325 MG TABLET.DR PO SCH ×2 (11:14→14:47)
[2020-07-17] MEDS: AMLODIPINE 2.5 MG TAB PO SCH (11:17)
[2020-07-17] MEDS: METOPROLOL SUCCINATE 50 MG TAB.SR.24H PO SCH (11:18)
[2020-07-17] MEDS: NYSTATIN 15 GM POWDER TP SCH (11:18)
[2020-07-17] MEDS: 0.9%NACL 1000ML 1,000 ML IV SCH (11:35)
[2020-07-17 11:50] VITALS: BP 139/47
[2020-07-17] MEDS: POTASSIUM CHLORIDE 10% ELIXIR 20 MEQ/15 ML UDCUP PO PRN ×2 (14:47→16:57)
[2020-07-17 15:55] VITALS: BP 128/31
== END 2020-07-17 18:08 | disposition home or self-care (01) | DRG 872 ==
LOC: EDH 12:45 → EDHIP 15:53 → 4BH 21:54
PROVIDERS: ADMIT Internal Medicine Pulmonary Disease; ATTEND Internal Medicine Pulmonary Disease
DX: A41.9 Sepsis, unspecified organism (principal); D69.3 Immune thrombocytopenic purpura; N30.00 Acute cystitis without hematuria; E86.0 Dehydration; E87.6 Hypokalemia; B96.1 Klebsiella pneumoniae [K. pneumoniae] as the cause of diseases classified elsewhere; D46.9 Myelodysplastic syndrome, unspecified; Z20.822 Contact with and (suspected) exposure to COVID-19; K21.9 Gastro-esophageal reflux disease without esophagitis; I25.10 Atherosclerotic heart disease of native coronary artery without angina pectoris; E11.9 Type 2 diabetes mellitus without complications; I10 Essential (primary) hypertension; E78.5 Hyperlipidemia, unspecified; D69.6 Thrombocytopenia, unspecified; Z79.52 Long term (current) use of systemic steroids; Z87.440 Personal history of urinary (tract) infections; Z90.49 Acquired absence of other specified parts of digestive tract
CPT/HCPCS: 36415; 71045; 71250; 74176; 80048; 80053; 81001; 82550; 82948; 83605; 83690; 83735; 83880; 84484; 85025; 85027; 85378; 85610; 85730; 86140; 86677; 87040; 87077; 87088; 87186; 87426; 87804; 92610; 93005; 97039; 99291; C9113; G0378; J0696; J1650; J1815; J2185; J2765; J3475; J7030; U0003

== ENCOUNTER 2020-07-27 01:18 | Inpatient (IN) | payer MEDICARE ==
[~2020-07-27] VITALS: Ht 157.5 cm; Wt 65.3 kg
[~2020-07-27 01:18] MED LIST changes: -ATOR10 PO; -CALM120O TP; -DOCU100T PO; -FERR-82 PO; +FERR325T22 PO; +LOVA40TA2 PO; -MAGN64TA13 PO; +METO-409 PO; -METO25TA6 PO; -NYST100P2 MC; -OMEP20CA12 PO; -POTA-202 PO; +PRED10TA3 PO; -PREN1TAB80 PO; +SITA1TAB6 PO; -TORS10TA18 PO; -TRAM50TA4 PO
[2020-07-27 02:12] LABS: APPEARANCE,URINE Clear (CLEAR); BILIRUBIN,URINE Small (NEGATIVE); COLOR,URINE Dark Yellow (YELLOW); GLUCOSE, URINE (UA) Negative (NEGATIVE); KETONES,URINE Trace mg/dL (NEGATIVE); LEUKOCYTE ESTERASE ,URINE Small (NEGATIVE); NITRATE,URINE Negative (NEGATIVE); OCCULT BLOOD,URINE Negative (NEGATIVE); PROTEIN,URINE POS 2+ mg/dL (NEGATIVE)
[2020-07-27 02:12] LABS: BASOPHILS % (AUTO) 0.2 % (0.0-5.0); EOSINOPHILS % (AUTO) 0.2 % (0.0-8.0); HEMATOCRIT 34.7 % (36-48); LYMPHOCYTES % (AUTO) 14.8 % (21.0-51.0); MEAN CORPUSCULAR HEMOGLOBIN 28.6 pg (27.0-33.0); MEAN CORPUSCULAR HGB CONC 32.9 g/dL (32.0-36.0); MEAN CORPUSCULAR VOLUME 87.2 fL (79-99); MONOCYTES % (AUTO) 5.3 % (3.0-13.0); NEUTROPHILS % (AUTO) 77.9 % (40.0-77.0); PLATELET COUNT (AUTO) 12 K/uL (130-400); RED BLOOD CELL COUNT(AUTO) 3.98 MIL/uL (4.00-5.50); RED CELL DISTRIBUTION WIDTH 16.1 % (11.0-15.5); WHITE BLOOD COUNT (AUTO) 16.9 K/uL (4.8-10.8)
[2020-07-27 02:14] LABS: CREATININE 0.9 mg/dL (0.5-1.5)
[2020-07-27 02:18] LABS: ALBUMIN 2.7 g/dL (3.5-5.0); BILIRUBIN,TOTAL 0.5 mg/dL (0.2-1.0); TOTAL PROTEIN, SERUM 5.7 g/dL (6.0-8.3)
[2020-07-27 02:20] LABS: BACTERIA,URINE Few /HPF (None Seen); RBC,URINE None Seen /HPF (0-1); SQUAMOUS EPITHELIAL CELL,UR Moderate /HPF (0-2)
[2020-07-27 02:21] LABS: RENAL EPITHELIAL CELLS,URINE Few /HPF (None Seen)
[2020-07-27] MEDS ORDERED: IOHEXOL-350 75 ML VIAL IV ONE (02:25)
[2020-07-27] MEDS ORDERED: ZOSYN 3.375GM+NS 50ML 50 ML IV ONE (02:53)
[2020-07-27] MEDS ORDERED: FERROUS SULFATE 325 MG TABLET.DR ONE (09:52)
[2020-07-27] MEDS ORDERED: LOSARTAN 50 MG TABLET ONE (09:52)
[2020-07-27] MEDS ORDERED: AMLODIPINE 5 MG TAB ONE (09:52)
[2020-07-27] MEDS ORDERED: PREDNISONE 10 MG TABLET ONE (09:52)
[2020-07-27] MEDS ORDERED: METOPROLOL SUCCINATE 50 MG TAB.SR.24H PO ONE (10:02)
[2020-07-27] MEDS ORDERED: MAGNESIUM 2GM PREMIX 50ML 50 ML IV PRN (11:15)
[2020-07-27] MEDS ORDERED: POTASSIUM CHLORIDE 20MEQ/100ML 100 ML IV PRN ×2 (11:15)
[2020-07-27] MEDS: 0.9%NACL 1000ML 1,000 ML IV SCH ×2 (11:15→21:05)
[2020-07-27] MEDS ORDERED: ONDANSETRON 4MG INJ IVP PRN (11:15)
[2020-07-27] MEDS ORDERED: DEXTROSE 50%-WATER 50 ML DISP.SYRIN IV PRN (11:15)
[2020-07-27] MEDS ORDERED: GLUCAGON 1MG KIT 1 MG ML IM PRN (11:15)
[2020-07-27] MEDS ORDERED: LIDOCAINE HCL-MPF 1% 2ML VIAL IV PRN ×2 (11:15)
[2020-07-27] MEDS ORDERED: MORPHINE 2 MG SYG IVP PRN (11:30)
[2020-07-27] MEDS: PANTOPRAZOLE 40 MG/VIAL IVP SCH (11:30)
[2020-07-27] MEDS: METOCLOPRAMIDE 10 MG/2 ML VIAL IVP SCH ×2 (11:30→17:00)
[2020-07-27] MEDS ORDERED: LEVOFLOXACIN 500 MG/D5W 100 ML 100 ML IV SCH (15:45)
[2020-07-27] MEDS: METRONIDAZOLE 500MG/100ML BAG 100 ML IVPB SCH ×2 (15:45→21:40)
[2020-07-27] MEDS ORDERED: DIPHENHYDRAMINE HCL 25 MG CAPSULE PO SCH (16:15)
[2020-07-27] MEDS ORDERED: ACETAMINOPHEN 325 MG TAB PO ONE (16:15)
[2020-07-27 16:48] VITALS: BP 139/51
[2020-07-27 20:00] VITALS: BP 142/75
[2020-07-27] MEDS: SUCRALFATE 1 GM TABLET PO SCH (21:04)
[2020-07-27 21:05] VITALS: BP 127/45
[2020-07-27] MEDS: INSULIN HUMULIN R 100 UNIT/ML 3ML SQ SCH (21:16)
[2020-07-27] MEDS: ZINC OXIDE OINT 30GM TUBE TP PRN (21:40)
[2020-07-28] VITALS (8 sets, daily range): BP systolic 112–145; BP diastolic 40–66
[2020-07-28] MEDS ORDERED: PRED50TA2 PO (01:49)
[2020-07-28] MEDS ORDERED: PNV1TABL17 PO (01:49)
[2020-07-28] MEDS: METRONIDAZOLE 500MG/100ML BAG 100 ML IVPB SCH ×3 (05:42→21:54)
[2020-07-28] MEDS: METOCLOPRAMIDE 10 MG/2 ML VIAL IVP SCH ×3 (05:42→17:09)
[2020-07-28] MEDS: INSULIN HUMULIN R 100 UNIT/ML 3ML SQ SCH ×4 (06:10→21:30)
[2020-07-28 07:52] LABS: HEMATOCRIT 26.7 % (36-48); MEAN CORPUSCULAR HEMOGLOBIN 28.9 pg (27.0-33.0); MEAN CORPUSCULAR VOLUME 87.8 fL (79-99); RED BLOOD CELL COUNT(AUTO) 3.04 MIL/uL (4.00-5.50); RED CELL DISTRIBUTION WIDTH 16.7 % (11.0-15.5); WHITE BLOOD COUNT (AUTO) 13.8 K/uL (4.8-10.8)
[2020-07-28 08:01] LABS: CREATININE 0.5 mg/dL (0.5-1.5); POTASSIUM 3.3 mmol/L (3.5-5.1)
[2020-07-28] MEDS: **HM** DULOXETINE 20MG PO SCH ×2 (09:00→21:00)
[2020-07-28] MEDS: PANTOPRAZOLE 40 MG/VIAL IVP SCH (09:34)
[2020-07-28] MEDS: LINAGLIPTIN 5 MG TABLET PO SCH ×2 (09:35→17:10)
[2020-07-28] MEDS: PREDNISONE 20 MG TABLET PO SCH (09:35)
[2020-07-28] MEDS: PRENATAL VITAMIN RX TABLET PO SCH (09:36)
[2020-07-28] MEDS: SUCRALFATE 1 GM TABLET PO SCH ×2 (09:36→21:01)
[2020-07-28] MEDS: LOSARTAN 100 MG TABLET PO SCH (09:37)
[2020-07-28] MEDS: FERROUS SULFATE 325 MG TABLET.DR PO SCH ×2 (09:37→21:01)
[2020-07-28] MEDS: METFORMIN HCL 500 MG TABLET PO SCH ×2 (09:40→17:10)
[2020-07-28] MEDS: 0.9%NACL 1000ML 1,000 ML IV SCH ×2 (13:55→23:08)
[2020-07-28] MEDS: LEVOFLOXACIN 500 MG/D5W 100 ML 100 ML IV SCH (20:59)
[2020-07-28] MEDS: METOPROLOL SUCCINATE 50 MG TAB.SR.24H PO SCH (21:00)
[2020-07-28] MEDS: ATORVASTATIN 10 MG TABLET PO SCH (21:00)
[2020-07-28] MEDS: AMLODIPINE 2.5 MG TAB PO SCH (21:01)
[2020-07-28] MEDS: ZINC OXIDE OINT 30GM TUBE TP PRN (21:29)
[2020-07-28] MEDS: INSULIN GLARGINE 100 UNITS/ML 10 ML VIAL SQ SCH (21:32)
[2020-07-29 03:31] VITALS: BP 114/42
[2020-07-29 05:17] LABS: HEMATOCRIT 25.9 % (36-48); MEAN CORPUSCULAR HEMOGLOBIN 28.8 pg (27.0-33.0); MEAN CORPUSCULAR HGB CONC 32.4 g/dL (32.0-36.0); MEAN CORPUSCULAR VOLUME 88.7 fL (79-99); RED BLOOD CELL COUNT(AUTO) 2.92 MIL/uL (4.00-5.50); RED CELL DISTRIBUTION WIDTH 16.7 % (11.0-15.5); WHITE BLOOD COUNT (AUTO) 14.7 K/uL (4.8-10.8)
[2020-07-29 05:32] LABS: CREATININE 0.6 mg/dL (0.5-1.5); POTASSIUM 3.4 mmol/L (3.5-5.1)
[2020-07-29] MEDS: METRONIDAZOLE 500MG/100ML BAG 100 ML IVPB SCH ×3 (05:38→21:19)
[2020-07-29] MEDS: METOCLOPRAMIDE 10 MG/2 ML VIAL IVP SCH ×3 (05:38→16:44)
[2020-07-29] MEDS: INSULIN HUMULIN R 100 UNIT/ML 3ML SQ SCH ×4 (06:08→21:00)
[2020-07-29] MEDS: POTASSIUM CHLORIDE 10% ELIXIR 20 MEQ/15 ML UDCUP PO PRN ×2 (06:18→11:55)
[2020-07-29 08:00] VITALS: BP 130/41
[2020-07-29] MEDS: LINAGLIPTIN 5 MG TABLET PO SCH ×2 (08:19→16:44)
[2020-07-29] MEDS: PREDNISONE 20 MG TABLET PO SCH (08:19)
[2020-07-29] MEDS: PANTOPRAZOLE 40 MG/VIAL IVP SCH (08:19)
[2020-07-29] MEDS: PRENATAL VITAMIN RX TABLET PO SCH (08:19)
[2020-07-29] MEDS: SUCRALFATE 1 GM TABLET PO SCH ×2 (08:19→21:19)
[2020-07-29] MEDS: METFORMIN HCL 500 MG TABLET PO SCH ×2 (08:19→16:44)
[2020-07-29] MEDS: FERROUS SULFATE 325 MG TABLET.DR PO SCH ×2 (08:19→21:06)
[2020-07-29] MEDS: LOSARTAN 100 MG TABLET PO SCH (08:20)
[2020-07-29] MEDS: **HM** DULOXETINE 20MG PO SCH ×2 (09:00→21:00)
[2020-07-29 12:00] VITALS: BP 134/55
[2020-07-29 16:00] VITALS: BP 131/56
[2020-07-29] MEDS: 0.9%NACL 1000ML 1,000 ML IV SCH (16:35)
[2020-07-29 20:04] VITALS: BP 144/61
[2020-07-29] MEDS: INSULIN GLARGINE 100 UNITS/ML 10 ML VIAL SQ SCH (21:02)
[2020-07-29] MEDS: AMLODIPINE 2.5 MG TAB PO SCH (21:06)
[2020-07-29] MEDS: LEVOFLOXACIN 500 MG/D5W 100 ML 100 ML IV SCH (21:06)
[2020-07-29] MEDS: ATORVASTATIN 10 MG TABLET PO SCH (21:07)
[2020-07-29] MEDS: METOPROLOL SUCCINATE 50 MG TAB.SR.24H PO SCH (21:07)
[2020-07-30 00:04] VITALS: BP 147/54
[2020-07-30 04:04] VITALS: BP 141/66
[2020-07-30] MEDS: 0.9%NACL 1000ML 1,000 ML IV SCH ×2 (05:11→19:15)
[2020-07-30] MEDS: METRONIDAZOLE 500MG/100ML BAG 100 ML IVPB SCH ×3 (05:11→21:33)
[2020-07-30 05:49] LABS: HEMATOCRIT 29.4 % (36-48); MEAN CORPUSCULAR HEMOGLOBIN 28.1 pg (27.0-33.0); MEAN CORPUSCULAR HGB CONC 31.3 g/dL (32.0-36.0); MEAN CORPUSCULAR VOLUME 89.9 fL (79-99); RED BLOOD CELL COUNT(AUTO) 3.27 MIL/uL (4.00-5.50)
[2020-07-30 06:07] LABS: CREATININE 0.7 mg/dL (0.5-1.5); POTASSIUM 3.9 mmol/L (3.5-5.1)
[2020-07-30] MEDS: INSULIN HUMULIN R 100 UNIT/ML 3ML SQ SCH ×4 (06:12→21:50)
[2020-07-30 08:00] VITALS: BP 152/55
[2020-07-30] MEDS: PANTOPRAZOLE 40 MG/VIAL IVP SCH (08:13)
[2020-07-30] MEDS: FERROUS SULFATE 325 MG TABLET.DR PO SCH ×2 (08:13→21:29)
[2020-07-30] MEDS: SUCRALFATE 1 GM TABLET PO SCH ×2 (08:13→21:29)
[2020-07-30] MEDS: PRENATAL VITAMIN RX TABLET PO SCH (08:13)
[2020-07-30] MEDS: METFORMIN HCL 500 MG TABLET PO SCH ×2 (08:13→18:26)
[2020-07-30] MEDS: LINAGLIPTIN 5 MG TABLET PO SCH ×2 (08:13→18:26)
[2020-07-30] MEDS: LOSARTAN 100 MG TABLET PO SCH (08:14)
[2020-07-30] MEDS: METOCLOPRAMIDE 10 MG/2 ML VIAL IVP SCH ×3 (08:14→18:26)
[2020-07-30] MEDS: **HM** DULOXETINE 20MG PO SCH ×2 (09:00→21:00)
[2020-07-30 12:00] VITALS: BP 181/69
[2020-07-30] MEDS ORDERED: COMPOUND IV MISC 1 EACH IVSOLN MISC PRN (13:45)
[2020-07-30] MEDS: DEXAMETHASONE 10MG/ML 1ML VIAL 40 MG in 0.9%NACL 50ML 50 ML IV SCH (16:01)
[2020-07-30 16:59] VITALS: BP 142/54
[2020-07-30 20:04] VITALS: BP 151/70
[2020-07-30] MEDS: BALSAM PERU/CASTOR OIL 60 GM TUBE TP SCH (21:00)
[2020-07-30] MEDS: ATORVASTATIN 10 MG TABLET PO SCH (21:29)
[2020-07-30] MEDS: AMLODIPINE 2.5 MG TAB PO SCH (21:29)
[2020-07-30] MEDS: METOPROLOL SUCCINATE 50 MG TAB.SR.24H PO SCH (21:29)
[2020-07-30] MEDS: LEVOFLOXACIN 500 MG/D5W 100 ML 100 ML IV SCH (21:29)
[2020-07-30] MEDS: INSULIN GLARGINE 100 UNITS/ML 10 ML VIAL SQ SCH (21:48)
[2020-07-31 00:04] VITALS: BP 140/73
[2020-07-31 04:04] VITALS: BP 118/61
[2020-07-31] MEDS: METRONIDAZOLE 500MG/100ML BAG 100 ML IVPB SCH ×3 (05:13→22:20)
[2020-07-31 06:06] LABS: HEMATOCRIT 30.9 % (36-48); MEAN CORPUSCULAR HEMOGLOBIN 28.3 pg (27.0-33.0); MEAN CORPUSCULAR VOLUME 88.3 fL (79-99); RED CELL DISTRIBUTION WIDTH 16.8 % (11.0-15.5); WHITE BLOOD COUNT (AUTO) 9.8 K/uL (4.8-10.8)
[2020-07-31 06:18] LABS: CREATININE 0.6 mg/dL (0.5-1.5); POTASSIUM 3.3 mmol/L (3.5-5.1)
[2020-07-31 06:23] LABS: PLATELET COUNT (AUTO) 9 K/uL (130-400)
[2020-07-31 07:24] VITALS: BP 134/52
[2020-07-31] MEDS: INSULIN HUMULIN R 100 UNIT/ML 3ML SQ SCH ×4 (07:45→21:52)
[2020-07-31] MEDS: KCL 20 MEQ ERTAB PO PRN ×3 (07:45→21:31)
[2020-07-31] MEDS: SUCRALFATE 1 GM TABLET PO SCH ×2 (09:00→21:31)
[2020-07-31] MEDS: PANTOPRAZOLE 40 MG/VIAL IVP SCH (09:00)
[2020-07-31] MEDS: METOCLOPRAMIDE 10 MG/2 ML VIAL IVP SCH ×3 (09:00→16:34)
[2020-07-31] MEDS: LINAGLIPTIN 5 MG TABLET PO SCH ×2 (09:00→16:34)
[2020-07-31] MEDS: **HM** DULOXETINE 20MG PO SCH ×2 (09:00→21:00)
[2020-07-31] MEDS: METFORMIN HCL 500 MG TABLET PO SCH ×2 (09:01→16:34)
[2020-07-31] MEDS: PRENATAL VITAMIN RX TABLET PO SCH (09:01)
[2020-07-31] MEDS: LOSARTAN 100 MG TABLET PO SCH (09:01)
[2020-07-31] MEDS: FERROUS SULFATE 325 MG TABLET.DR PO SCH ×2 (09:01→21:31)
[2020-07-31] MEDS: DEXAMETHASONE 10MG/ML 1ML VIAL 40 MG in 0.9%NACL 50ML 50 ML IV SCH (09:05)
[2020-07-31] MEDS: BALSAM PERU/CASTOR OIL 60 GM TUBE TP SCH ×2 (09:12→21:32)
[2020-07-31] MEDS: 0.9%NACL 1000ML 1,000 ML IV SCH ×2 (09:51→21:25)
[2020-07-31 11:37] VITALS: BP 155/65
[2020-07-31 15:47] VITALS: BP 140/60
[2020-07-31 19:00] VITALS: BP 147/59
[2020-07-31] MEDS: LEVOFLOXACIN 500 MG/D5W 100 ML 100 ML IV SCH (21:26)
[2020-07-31] MEDS: METOPROLOL SUCCINATE 50 MG TAB.SR.24H PO SCH (21:31)
[2020-07-31] MEDS: ATORVASTATIN 10 MG TABLET PO SCH (21:31)
[2020-07-31] MEDS: AMLODIPINE 2.5 MG TAB PO SCH (21:31)
[2020-07-31] MEDS: INSULIN GLARGINE 100 UNITS/ML 10 ML VIAL SQ SCH (21:53)
[2020-07-31] MEDS ORDERED: DILTIAZEM 25MG INJ IVP ONE (23:35)
[2020-07-31] MEDS: DILTIAZEM 50MG VIAL IV SCH (23:45)
[2020-08-01] VITALS (10 sets, daily range): BP systolic 94–130; BP diastolic 51–87
[2020-08-01] MEDS: METRONIDAZOLE 500MG/100ML BAG 100 ML IVPB SCH ×3 (05:53→21:26)
[2020-08-01 05:54] LABS: HEMATOCRIT 30.4 % (36-48); MEAN CORPUSCULAR HEMOGLOBIN 28.3 pg (27.0-33.0); MEAN CORPUSCULAR HGB CONC 32.6 g/dL (32.0-36.0); MEAN CORPUSCULAR VOLUME 86.9 fL (79-99); RED BLOOD CELL COUNT(AUTO) 3.5 MIL/uL (4.00-5.50); RED CELL DISTRIBUTION WIDTH 16.8 % (11.0-15.5); WHITE BLOOD COUNT (AUTO) 13.8 K/uL (4.8-10.8)
[2020-08-01 06:04] LABS: CREATININE 0.7 mg/dL (0.5-1.5); POTASSIUM 3.5 mmol/L (3.5-5.1)
[2020-08-01] MEDS ORDERED: METOPROLOL TARTRATE 1 MG/ML 5ML VIAL IV ONE (06:46)
[2020-08-01] MEDS: INSULIN HUMULIN R 100 UNIT/ML 3ML SQ SCH ×4 (06:57→22:12)
[2020-08-01] MEDS: METOPROLOL TARTRATE 1 MG/ML 5ML VIAL IV SCH ×2 (07:25→12:53)
[2020-08-01] MEDS: LOSARTAN 100 MG TABLET PO SCH (08:40)
[2020-08-01] MEDS: SUCRALFATE 1 GM TABLET PO SCH ×2 (08:40→21:26)
[2020-08-01] MEDS: PANTOPRAZOLE 40 MG/VIAL IVP SCH (08:40)
[2020-08-01] MEDS: METFORMIN HCL 500 MG TABLET PO SCH ×2 (08:40→16:12)
[2020-08-01] MEDS: PRENATAL VITAMIN RX TABLET PO SCH (08:40)
[2020-08-01] MEDS: LINAGLIPTIN 5 MG TABLET PO SCH ×2 (08:40→16:13)
[2020-08-01] MEDS: METOCLOPRAMIDE 10 MG/2 ML VIAL IVP SCH ×3 (08:40→16:22)
[2020-08-01] MEDS: FERROUS SULFATE 325 MG TABLET.DR PO SCH ×2 (08:41→21:33)
[2020-08-01] MEDS: DEXAMETHASONE 10MG/ML 1ML VIAL 40 MG in 0.9%NACL 50ML 50 ML IV SCH (08:41)
[2020-08-01] MEDS: BALSAM PERU/CASTOR OIL 60 GM TUBE TP SCH ×2 (09:00→21:36)
[2020-08-01] MEDS: **HM** DULOXETINE 20MG PO SCH ×2 (09:00→21:00)
[2020-08-01] MEDS ORDERED: METOPROLOL TARTRATE 50 MG TAB PO SCH (10:30)
[2020-08-01] MEDS: 0.9%NACL 1000ML 1,000 ML IV SCH (10:56)
[2020-08-01] MEDS ORDERED: DILTIAZEM 125 MG/25 ML INJ 125 MG in 0.9%NACL 100ML 100 ML IV SCH (13:00)
[2020-08-01 13:44] LABS: TROPONIN I 0.05 ng/mL (0.00-0.06)
[2020-08-01] MEDS ORDERED: DILTIAZEM 50MG VIAL IV SCH ×2 (14:00→14:30)
[2020-08-01] MEDS ORDERED: AMIODARONE 150MG VIAL 150 MG in DEXTROSE 5%-WATER 100 ML IV SCH (15:00)
[2020-08-01] MEDS ORDERED: AMIODARONE 900MG VIAL 450 MG in DEXTROSE 5%-WATER 250 ML IV SCH (15:00)
[2020-08-01] MEDS: AMIODARONE 900MG VIAL 360 MG in DEXTROSE 5%-WATER 200 ML IV SCH ×2 (15:49→16:05)
[2020-08-01] MEDS ORDERED: ESMOLOL HCL 2,500 MG in 0.9% NACL 250ML 250 ML IV SCH (19:15)
[2020-08-01 19:18] LABS: CREATINE KINASE, TOTAL 19 U/L (21-232); MYOGLOBIN 19 ng/mL (10-92); TROPONIN I < 0.04 ng/mL (0.00-0.06)
[2020-08-01] MEDS ORDERED: PHARMACY COMMUNICATION MISC SCH (20:45)
[2020-08-01] MEDS: AMLODIPINE 2.5 MG TAB PO SCH (21:00)
[2020-08-01] MEDS: ATORVASTATIN 10 MG TABLET PO SCH (21:26)
[2020-08-01] MEDS: LEVOFLOXACIN 500 MG/D5W 100 ML 100 ML IV SCH (21:26)
[2020-08-01] MEDS: INSULIN GLARGINE 100 UNITS/ML 10 ML VIAL SQ SCH (22:11)
[2020-08-01] MEDS: DILTIAZEM 50MG VIAL IV SCH (22:28)
[2020-08-02] VITALS (14 sets, daily range): BP systolic 114–156; BP diastolic 55–86
[2020-08-02] MEDS: 0.9%NACL 1000ML 1,000 ML IV SCH ×2 (01:52→13:55)
[2020-08-02 04:12] LABS: HEMATOCRIT 32.5 % (36-48); MEAN CORPUSCULAR HEMOGLOBIN 28.6 pg (27.0-33.0); MEAN CORPUSCULAR HGB CONC 32.6 g/dL (32.0-36.0); MEAN CORPUSCULAR VOLUME 87.6 fL (79-99); NUCLEATED RED BLOOD CELLS 0.1 % (0.0-0.19); RED BLOOD CELL COUNT(AUTO) 3.71 MIL/uL (4.00-5.50); RED CELL DISTRIBUTION WIDTH 16.8 % (11.0-15.5); WHITE BLOOD COUNT (AUTO) 14.3 K/uL (4.8-10.8)
[2020-08-02 04:22] LABS: CREATININE 0.7 mg/dL (0.5-1.5)
[2020-08-02 04:24] LABS: POTASSIUM 2.9 mmol/L (3.5-5.1)
[2020-08-02] MEDS: KCL 20 MEQ ERTAB PO PRN ×2 (04:35→04:44)
[2020-08-02] MEDS: METRONIDAZOLE 500MG/100ML BAG 100 ML IVPB SCH ×3 (05:15→23:50)
[2020-08-02] MEDS: INSULIN HUMULIN R 100 UNIT/ML 3ML SQ SCH ×4 (07:30→23:52)
[2020-08-02] MEDS: LINAGLIPTIN 5 MG TABLET PO SCH ×2 (07:59→16:56)
[2020-08-02] MEDS: SUCRALFATE 1 GM TABLET PO SCH ×2 (07:59→23:16)
[2020-08-02] MEDS: PRENATAL VITAMIN RX TABLET PO SCH (07:59)
[2020-08-02] MEDS: METFORMIN HCL 500 MG TABLET PO SCH ×2 (07:59→16:56)
[2020-08-02] MEDS: METOCLOPRAMIDE 10 MG/2 ML VIAL IVP SCH ×3 (07:59→16:57)
[2020-08-02] MEDS: PANTOPRAZOLE 40 MG/VIAL IVP SCH (08:00)
[2020-08-02] MEDS: POTASSIUM CHLORIDE 10% ELIXIR 20 MEQ/15 ML UDCUP PO PRN (08:00)
[2020-08-02] MEDS: LOSARTAN 100 MG TABLET PO SCH (08:00)
[2020-08-02] MEDS: FERROUS SULFATE 325 MG TABLET.DR PO SCH ×2 (08:00→23:16)
[2020-08-02] MEDS: BALSAM PERU/CASTOR OIL 60 GM TUBE TP SCH ×2 (08:01→23:18)
[2020-08-02] MEDS: **HM** DULOXETINE 20MG PO SCH ×2 (09:00→21:00)
[2020-08-02] MEDS ORDERED: METOPROLOL SUCCINATE 50 MG TAB.SR.24H PO SCH (09:00)
[2020-08-02] MEDS: DEXAMETHASONE 10MG/ML 1ML VIAL 40 MG in 0.9%NACL 50ML 50 ML IV SCH (09:09)
[2020-08-02] MEDS: METOPROLOL TARTRATE 25 MG TAB PO SCH (17:01)
[2020-08-02] MEDS: DILTIAZEM 50MG VIAL IV SCH (23:04)
[2020-08-02] MEDS: LEVOFLOXACIN 500 MG/D5W 100 ML 100 ML IV SCH (23:16)
[2020-08-02] MEDS: ATORVASTATIN 10 MG TABLET PO SCH (23:16)
[2020-08-02] MEDS: AMIODARONE 200 MG TABLET PO SCH (23:17)
[2020-08-02] MEDS: AMLODIPINE 2.5 MG TAB PO SCH (23:17)
[2020-08-02] MEDS: INSULIN GLARGINE 100 UNITS/ML 10 ML VIAL SQ SCH (23:53)
[2020-08-03] VITALS (7 sets, daily range): BP systolic 110–166; BP diastolic 38–83
[2020-08-03] MEDS: METOPROLOL TARTRATE 25 MG TAB PO SCH ×5 (01:40→23:47)
[2020-08-03] MEDS: 0.9%NACL 1000ML 1,000 ML IV SCH (03:15)
[2020-08-03] MEDS: METRONIDAZOLE 500MG/100ML BAG 100 ML IVPB SCH ×3 (06:32→21:49)
[2020-08-03] MEDS: METOCLOPRAMIDE 10 MG/2 ML VIAL IVP SCH ×3 (06:33→16:47)
[2020-08-03] MEDS: INSULIN HUMULIN R 100 UNIT/ML 3ML SQ SCH ×4 (06:44→21:31)
[2020-08-03 07:59] LABS: BASOPHILS % (AUTO) 0.1 % (0.0-5.0); HEMATOCRIT 30.4 % (36-48); MEAN CORPUSCULAR HEMOGLOBIN 27.6 pg (27.0-33.0); MEAN CORPUSCULAR HGB CONC 31.3 g/dL (32.0-36.0); MEAN CORPUSCULAR VOLUME 88.4 fL (79-99); MONOCYTES % (AUTO) 3.5 % (3.0-13.0); NEUTROPHILS % (AUTO) 88.9 % (40.0-77.0); PLATELET COUNT (AUTO) 47 K/uL (130-400); RED BLOOD CELL COUNT(AUTO) 3.44 MIL/uL (4.00-5.50); RED CELL DISTRIBUTION WIDTH 16.8 % (11.0-15.5); WHITE BLOOD COUNT (AUTO) 13.8 K/uL (4.8-10.8)
[2020-08-03] MEDS: AMIODARONE 200 MG TABLET PO SCH ×2 (08:28→21:28)
[2020-08-03] MEDS: LINAGLIPTIN 5 MG TABLET PO SCH ×2 (08:28→16:47)
[2020-08-03] MEDS: METFORMIN HCL 500 MG TABLET PO SCH ×2 (08:29→16:47)
[2020-08-03] MEDS: LOSARTAN 100 MG TABLET PO SCH (08:29)
[2020-08-03] MEDS: FERROUS SULFATE 325 MG TABLET.DR PO SCH ×2 (08:29→21:28)
[2020-08-03] MEDS: PRENATAL VITAMIN RX TABLET PO SCH (08:29)
[2020-08-03] MEDS: SUCRALFATE 1 GM TABLET PO SCH ×2 (08:29→21:29)
[2020-08-03] MEDS: PANTOPRAZOLE 40 MG/VIAL IVP SCH (08:29)
[2020-08-03] MEDS: DEXAMETHASONE 10MG/ML 1ML VIAL 40 MG in 0.9%NACL 50ML 50 ML IV SCH (08:30)
[2020-08-03] MEDS: **HM** DULOXETINE 20MG PO SCH ×2 (08:30→21:00)
[2020-08-03] MEDS: BALSAM PERU/CASTOR OIL 60 GM TUBE TP SCH ×2 (08:31→21:19)
[2020-08-03 08:46] LABS: CREATININE 0.9 mg/dL (0.5-1.5); POTASSIUM 4.1 mmol/L (3.5-5.1)
[2020-08-03 14:35] LABS: PHOSPHORUS 2.6 mg/dL (2.5-4.9)
[2020-08-03] MEDS ORDERED: FUROSEMIDE 20 MG TABLET PO SCH (15:20)
[2020-08-03] MEDS ORDERED: INSULIN HUMULIN R 100 UNIT/ML 3ML ONE (16:02)
[2020-08-03] MEDS ORDERED: METFORMIN HCL 500 MG TABLET ONE (16:44)
[2020-08-03] MEDS ORDERED: METOPROLOL TARTRATE 25 MG TAB ONE ×2 (16:45→23:47)
[2020-08-03] MEDS ORDERED: LINAGLIPTIN 5 MG TABLET ONE (16:45)
[2020-08-03] MEDS ORDERED: METOCLOPRAMIDE 10 MG/2 ML VIAL ONE (16:46)
[2020-08-03] MEDS ORDERED: AMIODARONE 200 MG TABLET PO ONE (21:22)
[2020-08-03] MEDS ORDERED: LEVOFLOXACIN 500 MG/D5W 100 ML 100 ML ONE (21:23)
[2020-08-03] MEDS ORDERED: FUROSEMIDE 20 MG TABLET ONE (21:23)
[2020-08-03] MEDS ORDERED: METRONIDAZOLE 500MG/100ML BAG 100 ML ONE (21:23)
[2020-08-03] MEDS ORDERED: ATORVASTATIN 10 MG TABLET ONE (21:23)
[2020-08-03] MEDS ORDERED: SUCRALFATE 1 GM TABLET ONE (21:24)
[2020-08-03] MEDS ORDERED: AMLODIPINE 2.5 MG TAB PO ONE (21:24)
[2020-08-03] MEDS: FUROSEMIDE 20 MG TABLET PO SCH (21:28)
[2020-08-03] MEDS: ATORVASTATIN 10 MG TABLET PO SCH (21:28)
[2020-08-03] MEDS: AMLODIPINE 2.5 MG TAB PO SCH (21:28)
[2020-08-03] MEDS: LEVOFLOXACIN 500 MG/D5W 100 ML 100 ML IV SCH (21:29)
[2020-08-03] MEDS: INSULIN GLARGINE 100 UNITS/ML 10 ML VIAL SQ SCH (21:31)
[2020-08-03] MEDS ORDERED: FERROUS SULFATE 325 MG TABLET.DR ONE (21:32)
[2020-08-03] MEDS: DILTIAZEM 50MG VIAL IV SCH (23:44)
[2020-08-04 03:00] VITALS: BP 135/55
[2020-08-04 05:33] LABS: HEMATOCRIT 31.1 % (36-48); MEAN CORPUSCULAR HEMOGLOBIN 28.6 pg (27.0-33.0); MEAN CORPUSCULAR HGB CONC 33.1 g/dL (32.0-36.0); MEAN CORPUSCULAR VOLUME 86.4 fL (79-99); RED BLOOD CELL COUNT(AUTO) 3.6 MIL/uL (4.00-5.50); RED CELL DISTRIBUTION WIDTH 16.4 % (11.0-15.5); WHITE BLOOD COUNT (AUTO) 16.9 K/uL (4.8-10.8)
[2020-08-04 05:58] LABS: ALBUMIN 2.2 g/dL (3.5-5.0); BILIRUBIN,TOTAL 0.3 mg/dL (0.2-1.0); CREATININE 0.7 mg/dL (0.5-1.5); POTASSIUM 3.3 mmol/L (3.5-5.1)
[2020-08-04] MEDS: METOPROLOL TARTRATE 25 MG TAB PO SCH ×5 (06:00→23:06)
[2020-08-04] MEDS: INSULIN HUMULIN R 100 UNIT/ML 3ML SQ SCH ×4 (06:08→21:44)
[2020-08-04] MEDS ORDERED: METOCLOPRAMIDE 10 MG/2 ML VIAL ONE (06:10)
[2020-08-04] MEDS ORDERED: METOPROLOL TARTRATE 25 MG TAB ONE ×2 (06:10→17:21)
[2020-08-04] MEDS: METRONIDAZOLE 500MG/100ML BAG 100 ML IVPB SCH ×3 (06:19→22:03)
[2020-08-04] MEDS: METOCLOPRAMIDE 10 MG/2 ML VIAL IVP SCH ×3 (06:27→15:50)
[2020-08-04] MEDS ORDERED: FERROUS SULFATE 325 MG TABLET.DR ONE (07:33)
[2020-08-04] MEDS ORDERED: PANTOPRAZOLE 40 MG/VIAL ONE (07:33)
[2020-08-04] MEDS ORDERED: AMIODARONE 200 MG TABLET PO ONE (07:33)
[2020-08-04] MEDS ORDERED: METFORMIN HCL 500 MG TABLET ONE ×2 (07:34→15:48)
[2020-08-04] MEDS ORDERED: LINAGLIPTIN 5 MG TABLET ONE ×2 (07:34→15:48)
[2020-08-04] MEDS ORDERED: LOSARTAN 100 MG TABLET ONE (07:34)
[2020-08-04] MEDS ORDERED: FUROSEMIDE 20 MG TABLET ONE (07:34)
[2020-08-04] MEDS ORDERED: SUCRALFATE 1 GM TABLET ONE (07:34)
[2020-08-04] MEDS: FUROSEMIDE 20 MG TABLET PO SCH ×2 (07:39→21:41)
[2020-08-04] MEDS: LOSARTAN 100 MG TABLET PO SCH (07:39)
[2020-08-04] MEDS: METFORMIN HCL 500 MG TABLET PO SCH ×2 (07:39→15:50)
[2020-08-04] MEDS: LINAGLIPTIN 5 MG TABLET PO SCH ×2 (07:39→15:50)
[2020-08-04] MEDS: FERROUS SULFATE 325 MG TABLET.DR PO SCH ×2 (07:39→21:41)
[2020-08-04] MEDS: AMIODARONE 200 MG TABLET PO SCH ×2 (07:39→21:42)
[2020-08-04] MEDS: SUCRALFATE 1 GM TABLET PO SCH ×2 (07:40→21:41)
[2020-08-04] MEDS: PRENATAL VITAMIN RX TABLET PO SCH (07:40)
[2020-08-04] MEDS: **HM** DULOXETINE 20MG PO SCH ×2 (07:40→21:00)
[2020-08-04] MEDS: PANTOPRAZOLE 40 MG/VIAL IVP SCH (07:40)
[2020-08-04] MEDS: BALSAM PERU/CASTOR OIL 60 GM TUBE TP SCH ×2 (07:40→21:42)
[2020-08-04 08:00] VITALS: BP 112/54
[2020-08-04] MEDS ORDERED: PREDNISONE 10 MG TABLET ONE (09:57)
[2020-08-04] MEDS ORDERED: PREDNISONE 20 MG TABLET PO SCH (10:00)
[2020-08-04 12:00] VITALS: BP 133/51
[2020-08-04] MEDS ORDERED: METRONIDAZOLE 500MG/100ML BAG 100 ML ONE (12:45)
[2020-08-04] MEDS ORDERED: INSULIN HUMULIN R 100 UNIT/ML 3ML ONE (15:49)
[2020-08-04 16:00] VITALS: BP 131/65
[2020-08-04] MEDS ORDERED: ONDANSETRON 4MG INJ IVP PRN (21:00)
[2020-08-04] MEDS ORDERED: INSULIN GLARGINE 100 UNITS/ML 10 ML VIAL SQ SCH (21:00)
[2020-08-04] MEDS ORDERED: KCL 20 MEQ ERTAB PO PRN (21:00)
[2020-08-04] MEDS ORDERED: POTASSIUM CHLORIDE 10% ELIXIR 20 MEQ/15 ML UDCUP PO PRN (21:00)
[2020-08-04] MEDS ORDERED: DEXTROSE 50%-WATER 50 ML DISP.SYRIN IV PRN (21:00)
[2020-08-04] MEDS ORDERED: GLUCAGON 1MG KIT 1 MG ML IM PRN (21:00)
[2020-08-04] MEDS ORDERED: LEVOFLOXACIN 500 MG/D5W 100 ML 100 ML IV SCH (21:00)
[2020-08-04] MEDS ORDERED: MAGNESIUM 2GM PREMIX 50ML 50 ML IV PRN (21:00)
[2020-08-04] MEDS ORDERED: AMLODIPINE 2.5 MG TAB PO SCH (21:00)
[2020-08-04] MEDS ORDERED: ATORVASTATIN 10 MG TABLET PO SCH (21:00)
[2020-08-04 21:21] VITALS: BP 117/68
[2020-08-05 00:30] VITALS: BP 134/69
[2020-08-05 04:22] LABS: BASOPHILS % (AUTO) 0.2 % (0.0-5.0); EOSINOPHILS % (AUTO) 0.3 % (0.0-8.0); HEMATOCRIT 33.1 % (36-48); LYMPHOCYTES % (AUTO) 6.1 % (21.0-51.0); MEAN CORPUSCULAR HEMOGLOBIN 27.9 pg (27.0-33.0); MEAN CORPUSCULAR HGB CONC 32.3 g/dL (32.0-36.0); MEAN CORPUSCULAR VOLUME 86.4 fL (79-99); NEUTROPHILS % (AUTO) 85.6 % (40.0-77.0); NUCLEATED RED BLOOD CELLS 0.1 % (0.0-0.19); PLATELET COUNT (AUTO) 47 K/uL (130-400); RED BLOOD CELL COUNT(AUTO) 3.83 MIL/uL (4.00-5.50); RED CELL DISTRIBUTION WIDTH 16.1 % (11.0-15.5); WHITE BLOOD COUNT (AUTO) 19.5 K/uL (4.8-10.8)
[2020-08-05 04:25] LABS: CREATININE 0.8 mg/dL (0.5-1.5)
[2020-08-05 04:33] LABS: POTASSIUM 2.9 mmol/L (3.5-5.1)
[2020-08-05 05:12] VITALS: BP 118/77
[2020-08-05] MEDS: METOPROLOL TARTRATE 25 MG TAB PO SCH ×3 (05:19→17:15)
[2020-08-05] MEDS: METRONIDAZOLE 500MG/100ML BAG 100 ML IVPB SCH (05:19)
[2020-08-05] MEDS ORDERED: POTASSIUM CHLORIDE 20MEQ/100ML 100 ML IV ONE (05:27)
[2020-08-05] MEDS: INSULIN HUMULIN R 100 UNIT/ML 3ML SQ SCH ×3 (06:43→16:30)
[2020-08-05 07:30] VITALS: BP 116/58
[2020-08-05] MEDS ORDERED: METFORMIN HCL 500 MG TABLET PO SCH (08:00)
[2020-08-05] MEDS: LINAGLIPTIN 5 MG TABLET PO SCH ×2 (08:00→17:00)
[2020-08-05] MEDS: FUROSEMIDE 20 MG TABLET PO SCH (09:00)
[2020-08-05] MEDS: SUCRALFATE 1 GM TABLET PO SCH (09:00)
[2020-08-05] MEDS: **HM** DULOXETINE 20MG PO SCH (09:00)
[2020-08-05] MEDS ORDERED: PREDNISONE 20 MG TABLET PO SCH (09:00)
[2020-08-05] MEDS ORDERED: PRENATAL VITAMIN RX TABLET PO SCH (09:00)
[2020-08-05] MEDS ORDERED: LOSARTAN 100 MG TABLET PO SCH (09:00)
[2020-08-05] MEDS: FERROUS SULFATE 325 MG TABLET.DR PO SCH (09:00)
[2020-08-05] MEDS: AMIODARONE 200 MG TABLET PO SCH (09:00)
[2020-08-05] MEDS: METOCLOPRAMIDE 10 MG/2 ML VIAL IVP SCH ×3 (09:21→17:00)
[2020-08-05] MEDS: PANTOPRAZOLE 40 MG/VIAL IVP SCH (09:21)
[2020-08-05] MEDS: BALSAM PERU/CASTOR OIL 60 GM TUBE TP SCH (09:29)
[2020-08-05 11:00] VITALS: BP 119/50
[2020-08-05] MEDS ORDERED: PROMETHAZINE HCL 25 MG SUPPOSITORY RC PRN (12:45)
[2020-08-05] MEDS ORDERED: LORAZEPAM 0.5 MG TABLET PO PRN (12:45)
[2020-08-05] MEDS ORDERED: MORPHINE 20MG/ML SOLN 0.25ML PO PRN (12:45)
[2020-08-05 16:00] VITALS: BP 117/54
[2020-08-05] MEDS ORDERED: INSULIN GLARGINE 100 UNITS/ML 10 ML VIAL SQ SCH (21:00)
== END 2020-08-05 18:06 | DRG 813 ==
LOC: EDH 01:18 → EDHIP 06:22 → OBSVTOIN 06:22 → 3BH 16:09 → 4CH 08-01 13:34 → 2DH 08-01 19:56 → UNDODISIN 08-03 11:15 → 4CH 08-03 16:38
PROVIDERS: ADMIT Internal Medicine; ATTEND Internal Medicine
PROC: 30233R1 Transfusion of Nonautologous Platelets into Peripheral Vein, Percutaneous Approach (ICD-10-PCS; principal; 2020-07-27)
DX: D69.3 Immune thrombocytopenic purpura (principal); N39.0 Urinary tract infection, site not specified; E87.1 Hypo-osmolality and hyponatremia; K92.2 Gastrointestinal hemorrhage, unspecified; I48.91 Unspecified atrial fibrillation; I95.9 Hypotension, unspecified; E86.0 Dehydration; I25.10 Atherosclerotic heart disease of native coronary artery without angina pectoris; L89.152 Pressure ulcer of sacral region, stage 2; D69.59 Other secondary thrombocytopenia; D46.9 Myelodysplastic syndrome, unspecified; E11.9 Type 2 diabetes mellitus without complications; I10 Essential (primary) hypertension; R19.7 Diarrhea, unspecified; E78.5 Hyperlipidemia, unspecified; E87.8 Other disorders of electrolyte and fluid balance, not elsewhere classified; Z66 Do not resuscitate; Z51.5 Encounter for palliative care; E66.9 Obesity, unspecified; K59.00 Constipation, unspecified; T38.0X5A Adverse effect of glucocorticoids and synthetic analogues, initial encounter; Y92.89 Other specified places as the place of occurrence of the external cause; Z86.2 Personal history of diseases of the blood and blood-forming organs and certain disorders involving the immune mechanism; Z87.440 Personal history of urinary (tract) infections; Z90.49 Acquired absence of other specified parts of digestive tract; Z79.01 Long term (current) use of anticoagulants; Z68.26 Body mass index [BMI] 26.0-26.9, adult; Z79.84 Long term (current) use of oral hypoglycemic drugs; Z82.3 Family history of stroke; Z83.3 Family history of diabetes mellitus
CPT/HCPCS: 36415; 36430; 71045; 74177; 80048; 80053; 81001; 82270; 82550; 82948; 83605; 83690; 83735; 83874; 83880; 84100; 84484; 85025; 85027; 86850; 86900; 86901; 86999; 87040; 92610; 93005; 93306; 97039; C9113; G0378; J0282; J1100; J1815; J1956; J2405; J2543; J2765; J3480; J3490; J7030; J7050; J7060; J7512; P9034; Q0163; Q9967